=== PATIENT | female | born 1950 | race Caucasian/White ===

== ENCOUNTER → 2020-01-17 10:04 | Outpatient (BNVA) | payer BC, SELFPAY | PROVIDERS: Visit Provider Nurse Practitioner Gerontology | DX: E11.9 Type 2 diabetes mellitus without complications (principal); I10 Essential (primary) hypertension; E66.09 Other obesity due to excess calories; E03.9 Hypothyroidism, unspecified; Z87.891 Personal history of nicotine dependence; Z79.899 Other long term (current) drug therapy; Z68.39 Body mass index [BMI] 39.0-39.9, adult; Z90.721 Acquired absence of ovaries, unilateral ==

== ENCOUNTER 2020-04-14 10:17 | Outpatient (REF) | payer BC, SELFPAY ==
[2020-04-14 14:06] LABS: Estimated Average Glucose 146 mg/dL; Hemoglobin A1c % 6.7 %
[2020-04-14 14:15] LABS: Creatinine Urine 123.72 mg/dL
[2020-04-14 14:18] LABS: Alanine Aminotransferase 52 U/L (0-31); Alkaline Phosphatase 77 U/L (39-117); Anion Gap 14 (12-20); Aspartate Amino Transferase 43 U/L (5-31); Bilirubin Total 0.7 mg/dL (0.0-1.0); Blood Urea Nitrogen 12 mg/dL (9-16); Calcium 8.6 mg/dL (8.4-10.2); Carbon Dioxide 26 mmol/L (22-29); Chloride 106 mmol/L (96-108); Cholesterol 169 mg/dL; Estimated Glomerular Filt Rate > 60; Glucose Fasting 147 mg/dL (60-99); HDL Cholesterol 50 mg/dL; LDL Cholesterol Calculated 82 mg/dl; Potassium 4.7 mmol/l (3.3-5.1); Sodium 141 mmol/L (135-145); Total Protein 6.8 g/dL (6.5-8.0); Triglycerides 185 mg/dL
== END 2020-04-14 10:18 | disposition home or self-care (01) ==
LOC: HO.10HDL 10:17
PROVIDERS: Visit Provider Nurse Practitioner Gerontology
DX: E11.9 Type 2 diabetes mellitus without complications (principal)
CPT/HCPCS: 80053; 80061; 82043; 83036

== ENCOUNTER → 2020-04-21 09:10 | Outpatient (BNVA) | payer BC, SELFPAY | PROVIDERS: Visit Provider Nurse Practitioner Gerontology | DX: Z76.89 Persons encountering health services in other specified circumstances (principal) ==

== ENCOUNTER → 2020-06-18 09:05 | Outpatient (BNVA) | payer BC, SELFPAY | PROVIDERS: PCP Internal Medicine; Visit Provider Obstetrics & Gynecology ==

== ENCOUNTER 2020-08-04 07:50 | Outpatient (REF) | payer MEDICARE, BC, SELFPAY ==
[2020-08-04 11:41] LABS: Hematocrit 46.7 % (37-47); Hemoglobin 15.2 g/dl (12.0-16.0)
[2020-08-04 11:47] LABS: Estimated Average Glucose 137 mg/dL; Hemoglobin A1c % 6.4 %
[2020-08-04 12:01] LABS: Alanine Aminotransferase 58 U/L (0-31); Albumin Level 4.1 g/dL (3.5-5.0); Alkaline Phosphatase 78 U/L (39-117); Anion Gap 16 (12-20); Aspartate Amino Transferase 44 U/L (5-31); Bilirubin Total 0.8 mg/dL (0.0-1.0); Blood Urea Nitrogen 17 mg/dL (9-16); Calcium 9.1 mg/dL (8.4-10.2); Carbon Dioxide 22 mmol/L (22-29); Chloride 107 mmol/L (96-108); Cholesterol 155 mg/dL; Estimated Glomerular Filt Rate > 60; Glucose Fasting 169 mg/dL (60-99); HDL Cholesterol 47 mg/dL; LDL Cholesterol Calculated 79 mg/dl; Potassium 4.1 mmol/L (3.3-5.1); Sodium 141 mmol/L (135-145); Total Protein 6.9 g/dL (6.5-8.0); Triglycerides 145 mg/dL
[2020-08-04 12:07] LABS: Microalbum/Creatinine Ratio Ur 22.2 ug/mg cr
[2020-08-04 12:30] LABS: TSH reflex Free T4 2.66 uIU/mL (0.32-4.0)
== END 2020-08-04 07:51 | disposition home or self-care (01) ==
LOC: HO.HMGCLDS 07:50
PROVIDERS: PCP Internal Medicine; Visit Provider Internal Medicine
DX: E03.9 Hypothyroidism, unspecified (principal); L91.8 Other hypertrophic disorders of the skin; E66.01 Morbid (severe) obesity due to excess calories; E11.9 Type 2 diabetes mellitus without complications; E78.5 Hyperlipidemia, unspecified; I10 Essential (primary) hypertension; R79.89 Other specified abnormal findings of blood chemistry; Z76.89 Persons encountering health services in other specified circumstances
CPT/HCPCS: 36415; 80053; 80061; 82043; 83036; 84443; 85014; 85018

== ENCOUNTER → 2020-08-13 08:00 | Outpatient (BNVA) | payer MEDICARE, BC, SELFPAY | PROVIDERS: PCP Internal Medicine; Visit Provider Physician Assistant | DX: Z13.89 Encounter for screening for other disorder (principal) | CPT/HCPCS: Q3014 ==

== ENCOUNTER 2020-08-19 07:39 | Outpatient (REF) | payer MEDICARE, BC, SELFPAY ==
--- NOTE | ~2020-08-19 | MM_ITS ---
EXAMINATION: MM SCREENING DIGITAL BREAST TOMOSYNTHESIS, BILATERAL CLINICAL INFORMATION: Screening. Asymptomatic. The lifetime risk of breast cancer based on the Tyrer-Cuzick Model is 5%. COMPARISON: Mammography: 02/21/2018, 10/05/2012 TECHNIQUE: Digital breast tomosynthesis is performed in both the craniocaudal and mediolateral oblique views along with computer-aided detection (CAD). Synthesized 2D images are generated from the tomosynthesis. Additional left CC view is provided. FINDINGS: There are scattered areas of fibroglandular density (ACR BI-RADS breast composition Category b). Parenchymal pattern is similar to prior studies. There is no developing density or interval mass or architectural abnormality. There are scattered bilateral round, vascular, and some ductal secretory calcifications. The axilla and skin contours are unremarkable. No significant changes. MM/MM tomosynthesis screening BI IMPRESSION: No mammographic evidence of malignancy. ASSESSMENT: BI-RADS 2: Benign RECOMMENDATION: Routine annual mammography screening. This patient's information was entered into a reminder system with a target due date for their next mammogram.
--- NOTE | ~2020-08-19 | MM_ITS ---
EXAMINATION: BONE DENSITOMETRY CLINICAL INDICATION: Menopause. COMPARISON: None (current study represents initial baseline exam). TECHNIQUE: Using a [employer] DXA System (software version: 13.1) manufactured by [employer], dual-energy x-ray absorptiometry was performed of the lumbar spine and left hip. The images are of good technical quality. Summary results are attached. FINDINGS: AP SPINE L1-L4: BMD 1.251 g/cm2, Z-score 1.3, T-score 0.6, normal. LEFT FEMUR, NECK: BMD 0.857 g/cm2, Z-score -0.2, T-score -1.3, osteopenia. LEFT FEMUR, TOTAL: BMD 1.072 g/cm2, Z-score 1.3, T-score 0.5, normal. IDENTIFIED RISK FACTORS: Menopause. HISTORY OF FRACTURE: None listed. MEDICATIONS: None listed. MM/XR DEXA axial skeleton IMPRESSION: 1. DIAGNOSIS: Osteopenia based on the lowest T-score value of -1.3 in the femoral neck applying World Health Organization criteria. 2. 10-YEAR FRACTURE RISK PREDICTION, FRAX: Major osteoporotic fracture (clinical spine, forearm, hip or shoulder) 8.5%. Hip fracture 1.0%. 3. Treatment Recommendations: NOF guidelines recommend consideration for treatment in postmenopausal women and men age 50 and older presenting with the following: -A hip or vertebral (clinical or morphometric) fracture. -T-score less than or equal to -2.5 at the femoral neck or spine after appropriate evaluation to exclude secondary causes. -Low bone mass at the hip or spine and a 10-year fracture probability by FRAX of greater than or equal to 3% for hip fracture or greater than or equal to 20% for major osteoporotic fracture based on the [place] adapted WHO algorithm. 4. Other Recommendations: All treatment decisions require clinical judgment and consideration of individual patient factors, including patient preferences, comorbidities, previous drug use, risk factors not captured in the FRAX model (e.g. frailty, falls, vitamin D deficiency, increased bone turnover, interval significant decline in bone density) and possible under or overestimation of fracture risk by FRAX. Additional medical evaluation for secondary cause of low bone mineral density may be appropriate. FUTURE SCAN RECOMMENDATION: People with diagnosed cases of osteoporosis or at high risk for fracture should have regular bone mineral density tests. For patients eligible for Medicare, routine testing is allowed once every 2 years. The testing frequency can be increased to one year for patients who have rapidly progressing disease, those who are receiving or discontinuing medical therapy to restore bone mass, or have additional risk factors.
== END 2020-08-19 07:40 | disposition home or self-care (01) ==
LOC: HO.MAMMO 07:39
PROVIDERS: PCP Internal Medicine; Visit Provider Obstetrics & Gynecology
DX: Z13.820 Encounter for screening for osteoporosis (principal); Z12.31 Encounter for screening mammogram for malignant neoplasm of breast; M85.80 Other specified disorders of bone density and structure, unspecified site; Z78.0 Asymptomatic menopausal state
CPT/HCPCS: 77063; 77067; 77080

== ENCOUNTER → 2020-08-25 15:53 | Outpatient (BNVA) | payer MEDICARE, BC, SELFPAY | PROVIDERS: PCP Internal Medicine; Visit Provider Obstetrics & Gynecology | DX: Z13.89 Encounter for screening for other disorder (principal) | CPT/HCPCS: Q3014 ==

== ENCOUNTER 2020-09-04 08:27 | Outpatient (REF) | payer MEDICARE, BC, SELFPAY ==
--- NOTE | ~2020-09-04 | US_ITS ---
EXAMINATION: US COMPLETE ABDOMEN WITH LIVER ELASTOGRAPHY CLINICAL INFORMATION: Obesity COMPARISON: None. TECHNIQUE: Real-time imaging of the abdominal viscera. Noninvasive ultrasound liver fibrosis assessment is performed using [employer] point quantification shear wave elastography (pSWE) with a C5-2 MHz transducer. Multiple elastography samples are obtained. FINDINGS: PANCREAS: Normal. The visualized pancreatic head and body are normal in appearance. The remainder of the pancreas is obscured from visualization by the overlying bowel gas. ABDOMINAL AORTA: The proximal and middle aortic segments are normal in caliber. The distal abdominal aorta is not well visualized due to bowel gas INFERIOR VENA CAVA: Visualized portions are normal. LIVER: Liver echotexture is increased. The liver is upper normal in size. The liver is normal in contour. No focal lesion or intrahepatic biliary duct dilatation. The right lobe measures 17.4 cm in length. The left lobe measures 13 cm in length. Portal flow is normal. Hepatopedal. Shear wave liver elastography median stiffness is 1.6 m/s (reference: normal median stiffness is 1.3 m/s or less). IQR/median stiffness to assess sampling precision is 0.2 (reference: good quality data set is IQR/median stiffness of 0.15 or less). GALLBLADDER: Normal. The gallbladder is physiologically distended without evidence of stones, sludge, polyps, wall thickening or pericholecystic fluid. COMMON BILE DUCT: Normal in caliber measuring 0.3 cm in diameter. RIGHT KIDNEY: There is a 9 mm echogenic lesion in the midpole of the right kidney. This most likely represents an angiomyolipoma. There is a 3.8 x 3.9 x 4.3 cm cyst in the midpole. No hydronephrosis. No renal calculi. The kidney measures 10.6 cm in maximum dimension. LEFT KIDNEY: Normal. No hydronephrosis. No renal calculi or focal parenchymal lesions. The kidney measures 11.3 cm in maximum dimension. SPLEEN: Upper normal in size. in the spleen. The spleen measures 13.6 cm in maximum dimension. FREE FLUID: None. US/US abdomen comp w elastography IMPRESSION: 1. Impression: Echogenic liver probably representing fatty infiltration. 9 mm echogenic lesion in the right lobe of the liver. This probably represents a benign angiomyolipoma. Confirmation with comparison with old exams if available is recommended. Otherwise, confirmation with CT or MRI of the kidneys should be considered. 4 cm right renal cyst. 2. Liver elastography: Slightly limited due to sampling error. Liver stiffness rules out advanced chronic liver disease. REFERENCE: Society of Radiologists in Ultrasound Liver Stiffness Thresholds (2020): LIVER STIFFNESS THRESHOLDS: *Liver Stiffness equal or less than 1.3 m/s: High probability of being normal. *Liver Stiffness less than 1.7 m/s: In the absence of other known clinical signs, rules out compensated advanced chronic liver disease. *Liver Stiffness 1.7-2.1 m/s: Suggestive of compensated advanced chronic liver disease but need further test for confirmation. *Liver Stiffness over 2.1 m/s: Rules in compensated advanced chronic liver disease. *Liver Stiffness over 2.4 m/s: Suggestive of clinically significant portal hypertension. QUALITY OF DATA SET: *IQR/Median value equal or less than 0.15 implies a quality data set. *IQR/Median value over 0.15 implies a poor quality data set. SIGNIFICANT CHANGE FROM PRIOR EXAM: Significant change if liver stiffness measurement is 10% or greater from prior exam. OTHER CONSIDERATIONS: The stage of liver fibrosis may be overestimated in the setting of acute hepatitis, liver inflammation, elevated liver function tests, hepatic vascular congestion, obstructive cholestasis, non-fasting state, and infiltrative diseases such as amyloidosis and lymphoma. In some patients with NAFLD, the liver stiffness thresholds for compensated advanced chronic liver disease may be lower. In causes other than viral hepatitis and NAFLD, liver stiffness thresholds are not well established.
[2020-09-04 09:37] LABS: MANUAL DIFF FLAG NO
[2020-09-04 09:44] LABS: Basophils Percent Auto 0.5 % (0-2); Eosinophils Absolute Auto 0.2 X10*3/uL (0.0-0.4); Eosinophils Percent Auto 3.1 % (0-4); Hematocrit 43.9 % (37-47); Hemoglobin 14.7 g/dl (12.0-16.0); Imm Gran Abs Auto 0.03 X10*3/uL (0.00-0.03); Imm Gran Pct Auto 0.5 % (0.0-0.4); Lymphocytes Absolute Auto 1.2 X10*3/uL (1.2-4.9); Mean Corpuscular HGB Conc 33.5 g/dl (31.0-35.0); Mean Corpuscular Hemoglobin 31.5 pg (27.0-33.0); Mean Corpuscular Volume 94.2 fL (80-98); Mean Platelet Volume 9.6 fL (9.4-12.3); Monocytes Absolute Auto 0.4 X10*3/uL (0.1-1.2); Monocytes Percent Auto 6.9 % (2-11); Neutrophils Absolute Auto 3.7 X10*3/uL (2.0-8.3); Platelet Count 200 X10*3/uL (160-400); Red Blood Count 4.66 X10*6/uL (4.20-5.50); Red Cell Distribution Width 14.5 % (11.0-16.0); White Blood Count 5.5 X10*3/uL (4.8-10.8)
[2020-09-04 10:22] LABS: HBsAGNum1 0.21 S/CO (0.00-0.99); Hepatitis B Surface Antigen Negative (Negative)
[2020-09-04 10:26] LABS: HBS Num1 0.31 mIU/mL (0-7.99); HBc Num1 0.27 S/CO (0.00-0.79); Hepatitis B Core Antibody Nonreactive (Nonreactive); ~HepC Num1 0.08 S/CO (0.00-0.79); ~Hepatitis B Surface Antibody NONREACTIVE (Nonreactive); ~Hepatitis C Antibody Nonreactive (Nonreactive)
[2020-09-04 11:08] LABS: Estimated Average Glucose 137 mg/dL; Hemoglobin A1c % 6.4 %
[2020-09-05 04:21] LABS: Hepatitis A Antibody IgM 0.16 Index (0-0.79); ~Hepatitis A Antibody IgM Nonreactive (Nonreactive)
[2020-09-09 14:56] LABS: Mitochondrial Antibodies NEGATIVE (NEGATIVE)
[2020-09-09 23:46] LABS: Anti Nuclear Antibody Screen POSITIVE (NEGATIVE); Anti Nuclear Antibody Titer 1:40 titer
[2020-09-10 21:12] LABS: Smooth Muscle Antibody <20 U (<20)
== END 2020-09-04 08:28 | disposition home or self-care (01) ==
LOC: HO.US 08:27
PROVIDERS: PCP Internal Medicine; Visit Provider Physician Assistant
DX: E66.01 Morbid (severe) obesity due to excess calories (principal); Z68.39 Body mass index [BMI] 39.0-39.9, adult; R79.89 Other specified abnormal findings of blood chemistry; R74.01 Elevation of levels of liver transaminase levels; R74.8 Abnormal levels of other serum enzymes
CPT/HCPCS: 36415; 76705; 76981; 83036; 85025; 86038; 86039; 86255; 86256; 86704; 86706; 86709; 86803; 87340

== ENCOUNTER → 2020-10-16 12:42 | Outpatient (BNVA) | payer MEDICARE, BC, SELFPAY | PROVIDERS: PCP Internal Medicine; Visit Provider Physician Assistant | DX: R79.89 Other specified abnormal findings of blood chemistry (principal); K76.0 Fatty (change of) liver, not elsewhere classified; R76.8 Other specified abnormal immunological findings in serum | CPT/HCPCS: Q3014 ==

== ENCOUNTER → 2020-10-21 09:52 | Outpatient (BNVA) | payer MEDICARE, BC, SELFPAY | PROVIDERS: PCP Internal Medicine; Visit Provider Nurse Practitioner Gerontology | DX: E11.9 Type 2 diabetes mellitus without complications (principal); I10 Essential (primary) hypertension; E66.01 Morbid (severe) obesity due to excess calories; E78.5 Hyperlipidemia, unspecified; Z68.39 Body mass index [BMI] 39.0-39.9, adult | CPT/HCPCS: 82947; 99212 ==

== ENCOUNTER → 2020-11-05 09:34 | Outpatient (BNVA) | payer MEDICARE, BC, SELFPAY | PROVIDERS: PCP Internal Medicine; Visit Provider Physician Assistant | CPT/HCPCS: Q3014 ==

== ENCOUNTER 2020-11-14 11:32 | Outpatient (REF) | payer MEDICARE, BC, SELFPAY ==
--- NOTE | ~2020-11-14 | MR_ITS ---
EXAMINATION: MR ABDOMEN WITHOUT AND WITH CONTRAST CLINICAL INFORMATION: Follow up renal lesion seen on ultrasound. COMPARISON: Previous abdominal ultrasound August 2020. TECHNIQUE: MR abdomen was performed without and with use of 10 mL intravenous Gadavist gadolinium contrast. Postcontrast images are performed in multiphase dynamic sequences. Imaging was performed in 3 planes. FINDINGS: LUNG BASES: The visualized lung bases are unremarkable. LIVER, GALLBLADDER, AND BILIARY TREE: The liver is normal in size and shape. There is mild fatty infiltration of the liver. No focal liver lesion is seen. The gallbladder is normal. There is no intra or extrahepatic biliary duct dilatation. PANCREAS: Unremarkable. SPLEEN: Normal. ADRENAL GLANDS: Normal. KIDNEYS AND URETERS: The kidneys are normal in size and shape. There is a 5 mm lesion in the posterior lateral right kidney. This is slightly low signal on T1-weighted sequences, not clearly appreciated on T2-weighted sequences and loses signal on out of phase sequences suggestive of a fatty lesion. This does not demonstrate appreciable enhancement. This likely corresponds to the echogenic lesion seen on ultrasound and represents a small benign angiomyolipoma. There is a 4 mm cyst in the anterior mid right kidney. There is a 4 cm cyst in the lateral mid left kidney. GASTROINTESTINAL TRACT: There is diverticulosis of the colon. No ascites or fluid collection. ABDOMINAL WALL: No significant hernia is appreciated. LYMPH NODES: No lymphadenopathy. VASCULAR: Unremarkable. OSSEOUS STRUCTURES: Marrow signal normal. There are degenerative changes of the spine. MR/MR abdomen wo/w con IMPRESSION: 5 mm lesion in the right kidney that loses signal on out of phase sequences probably representing a benign angiomyolipoma. Small 4 mm right renal cyst and 4 cm left renal cyst. Mild fatty infiltration of the liver. Diverticulosis of the colon.
[2020-11-14 12:18] LABS: Blood Urea Nitrogen 12 mg/dL (9-16); Estimated Glomerular Filt Rate > 60
== END 2020-11-14 11:33 | disposition home or self-care (01) ==
LOC: HO.MRI 11:32
PROVIDERS: PCP Internal Medicine; Visit Provider Physician Assistant
DX: R93.5 Abnormal findings on diagnostic imaging of other abdominal regions, including retroperitoneum (principal); R79.89 Other specified abnormal findings of blood chemistry; K76.0 Fatty (change of) liver, not elsewhere classified; E11.9 Type 2 diabetes mellitus without complications
CPT/HCPCS: 36415; 74183; 82565; 84520; A9585

== ENCOUNTER → 2020-11-25 15:30 | Outpatient (BNVA) | payer MEDICARE, BC, SELFPAY | PROVIDERS: PCP Internal Medicine; Visit Provider Physician Assistant | DX: K76.0 Fatty (change of) liver, not elsewhere classified (principal); D17.71 Benign lipomatous neoplasm of kidney | CPT/HCPCS: Q3014 ==

== ENCOUNTER 2021-01-12 10:02 | Outpatient (REF) | payer MEDICARE, BC, SELFPAY ==
[2021-01-12 12:12] LABS: MANUAL DIFF FLAG NO
[2021-01-12 12:24] LABS: Basophils Absolute Auto 0.1 X10*3/uL (0.0-0.2); Basophils Percent Auto 0.8 % (0-2); Eosinophils Absolute Auto 0.2 X10*3/uL (0.0-0.4); Eosinophils Percent Auto 2.9 % (0-4); Hematocrit 46.2 % (37-47); Hemoglobin 15.3 g/dl (12.0-16.0); Imm Gran Abs Auto 0.03 X10*3/uL (0.00-0.03); Imm Gran Pct Auto 0.4 % (0.0-0.4); Lymphocytes Absolute Auto 1.5 X10*3/uL (1.2-4.9); Lymphocytes Percent Auto 20.7 % (20-40); Mean Corpuscular HGB Conc 33.1 g/dl (31.0-35.0); Mean Corpuscular Volume 93.7 fL (80-98); Mean Platelet Volume 9.6 fL (9.4-12.3); Monocytes Absolute Auto 0.4 X10*3/uL (0.1-1.2); Monocytes Percent Auto 5.7 % (2-11); Neutrophils Absolute Auto 5.1 X10*3/uL (2.0-8.3); Neutrophils Percent Auto 69.5 % (45-73); Platelet Count 189 X10*3/uL (160-400); Red Blood Count 4.93 X10*6/uL (4.20-5.50); Red Cell Distribution Width 14.4 % (11.0-16.0); White Blood Count 7.3 X10*3/uL (4.8-10.8)
[2021-01-12 12:30] LABS: Estimated Average Glucose 140 mg/dL; Hemoglobin A1c % 6.5 %
[2021-01-12 12:38] LABS: Alanine Aminotransferase 45 U/L (0-31); Alkaline Phosphatase 81 U/L (39-117); Aspartate Amino Transferase 41 U/L (5-31); Bilirubin Direct 0.4 mg/dL (0.0-0.5); Bilirubin Total 1.1 mg/dL (0.0-1.0); Cholesterol 190 mg/dL; HDL Cholesterol 55 mg/dL; LDL Cholesterol Calculated 102 mg/dl; Total Protein 6.9 g/dL (6.5-8.0); Triglycerides 166 mg/dL
== END 2021-01-12 10:03 | disposition home or self-care (01) ==
LOC: HO.LAB 10:02
PROVIDERS: Nurse Practitioner Gerontology; Visit Provider Physician Assistant
DX: R10.11 Right upper quadrant pain (principal); K76.0 Fatty (change of) liver, not elsewhere classified; K62.5 Hemorrhage of anus and rectum; E11.9 Type 2 diabetes mellitus without complications
CPT/HCPCS: 36415; 80061; 80076; 83036; 85025

== ENCOUNTER → 2021-04-27 08:37 | Outpatient (BNVA) | payer MEDICARE, BC, SELFPAY | PROVIDERS: Visit Provider Nurse Practitioner Gerontology | DX: E11.9 Type 2 diabetes mellitus without complications (principal); I10 Essential (primary) hypertension; E66.01 Morbid (severe) obesity due to excess calories; E78.5 Hyperlipidemia, unspecified; E03.9 Hypothyroidism, unspecified; Z68.39 Body mass index [BMI] 39.0-39.9, adult | CPT/HCPCS: 36415; 82043; 82947; 83036; 84439; 84443; 99212 ==

== ENCOUNTER 2021-04-27 09:53 | Outpatient (REF) | payer MEDICARE, BC, SELFPAY ==
[2021-04-27 10:52] LABS: Creatinine Urine 223.79 mg/dL; Microalbum/Creatinine Ratio Ur 10.2 ug/mg cr
[2021-04-27 11:17] LABS: Thyroid Stimulating Hormone 18.23 uIU/mL (0.32-4.0)
== END 2021-04-27 09:54 | disposition home or self-care (01) ==
LOC: HO.10HDL 09:53
PROVIDERS: Visit Provider Nurse Practitioner Gerontology
DX: Z13.89 Encounter for screening for other disorder (principal)
CPT/HCPCS: 36415; 82043; 84439; 84443

== ENCOUNTER → 2021-05-14 09:35 | Outpatient (BNVA) | payer MEDICARE, BC, SELFPAY | PROVIDERS: PCP Internal Medicine; Referring Provider Internal Medicine; Visit Provider Physician Assistant | DX: K76.0 Fatty (change of) liver, not elsewhere classified (principal); R79.89 Other specified abnormal findings of blood chemistry | CPT/HCPCS: 99212 ==

== ENCOUNTER → 2021-06-22 09:56 | Outpatient (BNVA) | payer MEDICARE, BC, SELFPAY | PROVIDERS: PCP Internal Medicine; Visit Provider Obstetrics & Gynecology | DX: Z13.89 Encounter for screening for other disorder (principal) ==

== ENCOUNTER 2021-06-29 08:09 | Outpatient (REF) | payer MEDICARE, BC, SELFPAY ==
[2021-06-29 11:06] LABS: Alanine Aminotransferase 57 U/L (0-31); Alkaline Phosphatase 72 U/L (39-117); Aspartate Amino Transferase 44 U/L (5-31); Bilirubin Direct 0.4 mg/dL (0.0-0.5); Bilirubin Total 0.9 mg/dL (0.0-1.0); Cholesterol 134 mg/dL; HDL Cholesterol 46 mg/dL; LDL Cholesterol Calculated 60 mg/dl; Triglycerides 141 mg/dL
[2021-06-29 11:23] LABS: Thyroid Stimulating Hormone 5.56 uIU/mL (0.32-4.0)
[2021-06-29 11:27] LABS: Free T4 (Free Thyroxine) 1.24 ng/dL (0.71-1.85); Thyroid Stimulating Hormone 5.45 uIU/mL (0.32-4.0)
== END 2021-06-29 08:10 | disposition home or self-care (01) ==
LOC: HO.10HDL 08:09
PROVIDERS: Physician Assistant; PCP Nurse Practitioner Gerontology; Visit Provider Nurse Practitioner Gerontology
DX: K59.09 Other constipation (principal); R10.11 Right upper quadrant pain; K76.0 Fatty (change of) liver, not elsewhere classified; E03.9 Hypothyroidism, unspecified
CPT/HCPCS: 36415; 80061; 80076; 84439; 84443

== ENCOUNTER → 2021-07-27 08:40 | Outpatient (BNVA) | payer MEDICARE, BC, SELFPAY | PROVIDERS: Visit Provider Nurse Practitioner Gerontology | DX: E11.9 Type 2 diabetes mellitus without complications (principal); E78.5 Hyperlipidemia, unspecified; E03.9 Hypothyroidism, unspecified; E66.01 Morbid (severe) obesity due to excess calories; I10 Essential (primary) hypertension; Z68.38 Body mass index [BMI] 38.0-38.9, adult | CPT/HCPCS: 82947; 83036; Q3014 ==

== ENCOUNTER 2021-08-10 10:52 | Outpatient (REF) | payer MEDICARE, BC, SELFPAY ==
[2021-08-10 12:52] LABS: Free T4 (Free Thyroxine) 1.18 ng/dL (0.71-1.85); Thyroid Stimulating Hormone 1.61 uIU/mL (0.32-4.0)
[2021-08-12 11:06] LABS: Thyroglobulin Antibodies 1 IU/mL (< or = 1); Thyroid Peroxidase Antibodies 1 IU/mL (<9)
== END 2021-08-10 10:53 | disposition home or self-care (01) ==
LOC: HO.10HDL 10:52
PROVIDERS: Visit Provider Nurse Practitioner Gerontology
DX: E03.9 Hypothyroidism, unspecified (principal)
CPT/HCPCS: 36415; 84439; 84443; 86376; 86800

== ENCOUNTER 2021-12-18 07:37 | Outpatient (REF) | payer MEDICARE, BC, SELFPAY ==
--- NOTE | ~2021-12-18 | MM_ITS ---
EXAMINATION: MM SCREENING DIGITAL BREAST TOMOSYNTHESIS, BILATERAL CLINICAL INFORMATION: Screening. Asymptomatic. The lifetime risk of breast cancer based on the Tyrer-Cuzick Model is 5%. COMPARISON: Mammography: 08/19/2020, 02/21/2018, 10/05/2012 TECHNIQUE: Digital breast tomosynthesis is performed in both the craniocaudal and mediolateral oblique views along with computer-aided detection (CAD). Synthesized 2D images are generated from the tomosynthesis. FINDINGS: There are scattered areas of fibroglandular density (ACR BI-RADS breast composition Category b). There are no significant masses, abnormal calcifications, or other abnormalities. Parenchymal pattern is similar to prior studies. No developing density. Again, there are scattered bilateral vascular, coarse, ductal secretory, and punctate round calcifications. The axilla and skin contours are unremarkable. MM/MM tomosynthesis screening BI IMPRESSION: No mammographic evidence of malignancy. ASSESSMENT: BI-RADS 2: Benign RECOMMENDATION: Routine annual mammography screening. This patient's information was entered into a reminder system with a target due date for their next mammogram.
== END 2021-12-18 07:38 | disposition home or self-care (01) ==
LOC: HO.MAMMO 07:37
PROVIDERS: Visit Provider Obstetrics & Gynecology
DX: Z12.31 Encounter for screening mammogram for malignant neoplasm of breast (principal)
CPT/HCPCS: 77063; 77067

== ENCOUNTER 2022-01-18 09:39 | Outpatient (REF) | payer MEDICARE, BC, SELFPAY ==
[2022-01-18 11:16] LABS: MANUAL DIFF FLAG NO
[2022-01-18 11:30] LABS: Basophils Percent Auto 0.7 % (0-2); Eosinophils Absolute Auto 0.2 X10*3/uL (0.0-0.4); Eosinophils Percent Auto 4.1 % (0-4); Hematocrit 44.5 % (37.0-47.0); Hemoglobin 14.2 g/dl (12.0-16.0); Imm Gran Abs Auto 0.02 X10*3/uL (0.00-0.03); Imm Gran Pct Auto 0.4 % (0.0-0.4); Lymphocytes Absolute Auto 1.4 X10*3/uL (1.2-4.9); Lymphocytes Percent Auto 24.7 % (20-40); Mean Corpuscular HGB Conc 31.9 g/dl (31.0-35.0); Mean Corpuscular Hemoglobin 30.3 pg (27.0-33.0); Mean Corpuscular Volume 95.1 fL (80.0-98.0); Mean Platelet Volume 9.5 fL (9.4-12.3); Monocytes Absolute Auto 0.4 X10*3/uL (0.1-1.2); Monocytes Percent Auto 7.1 % (2-11); Neutrophils Absolute Auto 3.6 x10*3/uL (2.0-8.3); Platelet Count 175 X10*3/uL (160-400); Red Blood Count 4.68 X10*6/uL (4.20-5.50); Red Cell Distribution Width 14.7 % (11.0-16.0); White Blood Count 5.7 X10*3/uL (4.8-10.8)
[2022-01-18 12:02] LABS: Alanine Aminotransferase 27 U/L (0-31); Alkaline Phosphatase 76 U/L (39-117); Anion Gap 16 (12-20); Aspartate Amino Transferase 25 U/L (5-31); Bilirubin Total 1.1 mg/dL (0.0-1.0); Blood Urea Nitrogen 14 mg/dL (9-16); Calcium 9.2 mg/dL (8.4-10.2); Carbon Dioxide 24 mmol/L (22-29); Chloride 106 mmol/L (96-108); Cholesterol 156 mg/dL; Estimated Glomerular Filt Rate > 60; Glucose Fasting 121 mg/dL (60-99); HDL Cholesterol 47 mg/dL; LDL Cholesterol Calculated 78 mg/dl; Sodium 142 mmol/L (135-145); Total Protein 6.7 g/dL (6.5-8.0); Triglycerides 155 mg/dL
[2022-01-18 12:07] LABS: TSH reflex Free T4 0.75 uIU/mL (0.32-4.0)
[2022-01-18 12:10] LABS: Estimated Average Glucose 123 mg/dL; Hemoglobin A1c % 5.9 %
== END 2022-01-18 09:40 | disposition home or self-care (01) ==
LOC: HO.HMGCLDS 09:39
PROVIDERS: PCP Internal Medicine; Visit Provider Internal Medicine
DX: I10 Essential (primary) hypertension (principal); E03.8 Other specified hypothyroidism; E78.9 Disorder of lipoprotein metabolism, unspecified; R79.89 Other specified abnormal findings of blood chemistry
CPT/HCPCS: 36415; 80053; 80061; 83036; 84443; 85025

== ENCOUNTER 2022-04-28 07:34 | Outpatient (REF) | payer MEDICARE, BC, SELFPAY ==
[2022-04-28 12:29] LABS: Alanine Aminotransferase 28 U/L (0-31); Alkaline Phosphatase 81 U/L (39-117); Anion Gap 15 (12-20); Aspartate Amino Transferase 26 U/L (5-31); Bilirubin Total 1.2 mg/dL (0.0-1.0); Blood Urea Nitrogen 17 mg/dL (9-16); Calcium 9.8 mg/dL (8.4-10.2); Carbon Dioxide 22 mmol/L (22-29); Chloride 107 mmol/L (96-108); Estimated Glomerular Filt Rate 56; Glucose Random 165 mg/dL (60-115); Sodium 140 mmol/L (135-145)
[2022-04-28 12:33] LABS: Estimated Average Glucose 123 mg/dL; Hemoglobin A1c % 5.9 %
[2022-04-28 12:34] LABS: TSH reflex Free T4 1.33 uIU/mL (0.32-4.0)
[2022-04-30 01:22] LABS: LDL Cholesterol Direct 83 mg/dL (<100)
== END 2022-04-28 07:35 | disposition home or self-care (01) ==
LOC: HO.HMGCLDS 07:34
PROVIDERS: PCP Internal Medicine; Visit Provider Internal Medicine
DX: E11.9 Type 2 diabetes mellitus without complications (principal); E66.09 Other obesity due to excess calories; E78.9 Disorder of lipoprotein metabolism, unspecified; I10 Essential (primary) hypertension; E03.8 Other specified hypothyroidism
CPT/HCPCS: 36415; 80053; 83036; 83721; 84443

== ENCOUNTER → 2022-05-20 07:39 | Outpatient (BNVA) | payer MEDICARE, BC, SELFPAY | PROVIDERS: PCP Internal Medicine; Referring Provider Internal Medicine; Visit Provider Physician Assistant | DX: K76.0 Fatty (change of) liver, not elsewhere classified (principal) | CPT/HCPCS: 99212 ==

== ENCOUNTER 2022-12-28 07:18 | Outpatient (REF) | payer MEDICARE, BC, SELFPAY ==
--- NOTE | ~2022-12-28 | MM_ITS ---
EXAMINATION: MM SCREENING DIGITAL BREAST TOMOSYNTHESIS, BILATERAL CLINICAL INFORMATION: Screening. Asymptomatic. COMPARISON: Mammography: This study is compared with prior exams dating back to 2018. TECHNIQUE: Digital breast tomosynthesis is performed in both the craniocaudal and mediolateral oblique views along with computer-aided detection (CAD). Synthesized 2D images are generated from the tomosynthesis. FINDINGS: The breasts are heterogeneously dense, which may obscure small masses (ACR BI-RADS breast composition Category c). There are no significant masses, abnormal calcifications, or other abnormalities. There are scattered, benign calcifications in each breast. MM/MM tomosynthesis screening BI IMPRESSION: No mammographic evidence of malignancy. ASSESSMENT: BI-RADS BI-RADS 2 - Benign Findings RECOMMENDATION: Routine annual mammography screening. 1 year F/U This examination should not preclude the clinical evaluation of a suspicious palpable abnormality. This patient's information was entered into a reminder system with a target due date for their next mammogram.
== END 2022-12-28 07:19 | disposition home or self-care (01) ==
LOC: HO.MAMMO 07:18
PROVIDERS: PCP Internal Medicine; Visit Provider Internal Medicine
DX: Z12.31 Encounter for screening mammogram for malignant neoplasm of breast (principal)
CPT/HCPCS: 77063; 77067

== ENCOUNTER → 2022-12-28 07:30 | Outpatient (BNV) | payer MEDICARE, BC, SELFPAY | PROVIDERS: PCP Internal Medicine; Visit Provider Radiology Diagnostic Radiology | DX: Z12.31 Encounter for screening mammogram for malignant neoplasm of breast (principal) | CPT/HCPCS: 77063; 77067 ==

== ENCOUNTER 2023-01-14 07:13 | Outpatient (REF) | payer MEDICARE, BC, SELFPAY ==
[2023-01-14 11:14] LABS: MANUAL DIFF FLAG NO
[2023-01-14 11:27] LABS: Estimated Average Glucose 120 mg/dL; Hemoglobin A1c % 5.8 % (<6.0)
[2023-01-14 11:32] LABS: Basophils Percent Auto 0.7 % (0-2); Eosinophils Absolute Auto 0.2 X10*3/uL (0.0-0.4); Eosinophils Percent Auto 3.5 % (0-4); Hematocrit 44.9 % (37.0-47.0); Hemoglobin 14.5 g/dl (12.0-16.0); Imm Gran Abs Auto 0.03 X10*3/uL (0.00-0.03); Imm Gran Pct Auto 0.5 % (0.0-0.4); Lymphocytes Absolute Auto 1.6 X10*3/uL (1.2-4.9); Lymphocytes Percent Auto 26.4 % (20-40); Mean Corpuscular HGB Conc 32.3 g/dl (31.0-35.0); Mean Corpuscular Hemoglobin 30.8 pg (27.0-33.0); Mean Corpuscular Volume 95.3 fL (80.0-98.0); Mean Platelet Volume 9.9 fL (9.4-12.3); Monocytes Absolute Auto 0.4 X10*3/uL (0.1-1.2); Monocytes Percent Auto 6.6 % (2-11); Neutrophils Absolute Auto 3.8 x10*3/uL (2.0-8.3); Neutrophils Percent Auto 62.3 % (45-73); Platelet Count 190 X10*3/uL (160-400); Red Blood Count 4.71 X10*6/uL (4.20-5.50); Red Cell Distribution Width 14.4 % (11.0-16.0); White Blood Count 6.1 X10*3/uL (4.8-10.8)
[2023-01-14 11:49] LABS: Alanine Aminotransferase 24 U/L (0-31); Albumin Level 3.8 g/dL (3.5-5.0); Alkaline Phosphatase 67 U/L (39-117); Anion Gap 15 (12-20); Aspartate Amino Transferase 24 U/L (5-31); Bilirubin Total 0.7 mg/dL (0.0-1.0); Blood Urea Nitrogen 13 mg/dL (9-16); Calcium 9.7 mg/dL (8.4-10.2); Carbon Dioxide 22 mmol/L (22-29); Chloride 109 mmol/L (96-108); Estimated Glomerular Filt Rate > 60; Glucose Random 135 mg/dL (60-115); Potassium 4.2 mmol/L (3.3-5.1); Sodium 142 mmol/L (135-145)
[2023-01-16 08:09] LABS: LDL Cholesterol Direct 74 mg/dL (<100)
== END 2023-01-14 07:14 | disposition home or self-care (01) ==
LOC: HO.HMGCLDS 07:13
PROVIDERS: PCP Internal Medicine; Visit Provider Internal Medicine
DX: E11.9 Type 2 diabetes mellitus without complications (principal); I10 Essential (primary) hypertension; E66.9 Obesity, unspecified; E03.8 Other specified hypothyroidism; E78.9 Disorder of lipoprotein metabolism, unspecified; R79.89 Other specified abnormal findings of blood chemistry
CPT/HCPCS: 36415; 80053; 83036; 83721; 84439; 84443; 85025

== ENCOUNTER 2023-01-21 08:35 | Outpatient (AMB) | payer MEDICARE, BC, SELFPAY ==
[2023-01-21 08:39] VITALS: BP 148/60; PULSE 74; O2SAT 94; BMI 40.8
--- NOTE | 2023-01-21 08:39 | MHC.PC.OV ---
Vital Signs 01/21/23 08:39 Height 5 ft 1 in Weight 216 lb BMI 40.8 BP 148/60 H Blood Pressure Location Lt brachial Position Sitting Pulse 74 Pulse Source Pulse Oximeter Pulse Oximetry (%) 94 Oxygen Delivery Method Room Air Intake Visit Reasons: 3 Month follow up Allergies amoxicillin [AMOXICILLIN] Allergy (Intermediate, Verified 01/21/23 08:41) RASH Penicillins [PENICILLINS] Allergy (Intermediate, Verified 01/21/23 08:41) RASH cephaloglycin [CEPHALOGLYCIN] Allergy (Mild, Verified 01/21/23 08:41) RASH ciprofloxacin [From CIPRO] Allergy (Mild, Verified 01/21/23 08:41) RASH penicillin V Allergy (Unknown, Verified 01/21/23 08:41) Unknown Amoxicillin Allergy (Unknown, Uncoded 05/20/22 08:09) Rash Cephadyn Allergy (Unknown, Uncoded 05/20/22 08:09) rash Cipro Allergy (Unknown, Uncoded 08/24/22 09:38) Rash penicillin Allergy (Unknown, Uncoded 08/24/22 09:38) Rash Medication List - Last Reconciled 01/21/23 by Brianna Gloria MD atorvastatin 40 mg PO DAILY blood sugar diagnostic (OneTouch Ultra Test strips) As directed 3x/day levothyroxine 88 mcg PO DAILY 90 days olmesartan 5 mg PO DAILY pen needle, diabetic As directed pioglitazone 30 mg PO DAILY semaglutide 1 mg (0.75 mL) subcut QWEEK 90 days Tobacco use date assessed: 01/21/23 Fall risk assessment: No Falls in past year Last assessed Fall Risk: 01/21/23 Dental Screening Dental Screen Date: 01/21/23 Did you have a dental visit in the last 12 months?: No Did you have a dental problem in the last 6 months where you did not have access to dental care?: No Was dental information given to patient?: Patient has dentist HPI 3 Month follow up HPI Details Patient is a 72-year-old female came in today for regular follow-up appointment Labs done 01/08/2023 showed TSH level of 0.10 Be adjusted her levothyroxine to 88 mcg patient was on 100 mcg She will repeat labs again in 6 weeks Diabetes mellitus : patient is on Actos 30 mg and Trulicity her hemoglobin A1c came back at 5.8 I am reducing the dose of Actos to 15 mg, patient is monitoring her blood sugar at home mostly in the morning and it runs around 125 Blood pressure is elevated patient is on olmesartan 5 mg, she forgot to bring her blood pressure monitor I am increasing the dose of olmesartan to 10 mg She will bring the blood pressure monitor and blood pressure log next visit. Lipid disorder: Continue atorvastatin 40 mg patient is tolerating medication BMI is 40.8 patient is morbidly obese and need to lose weight. Follow-up 3 months [facility] Medical History Positive HOLLY (antinuclear antibody) Hypothyroidism Hyperlipidemia LDL goal <100 Elevated LFTs Obesity due to excess calories Hypertension Controlled type 2 diabetes mellitus without complication Surgical History H/O colonoscopy Hx of dilation and curettage History of right oophorectomy Family History Sister Diabetes type 2, controlled Brother Diabetes, type I Social History Household Members: None Housing: House Alcohol intake: current Alcohol intake frequency: holidays/special occasions only Patient Tobacco Use Status: Former Tobacco user Years Smoked: 20 years e-Cigarette/Vaping Use: Never Used Second Hand Smoke Exposure: No service: No Current occupational status: retired Cognitive needs: No Hearing needs: No Vision needs: Yes Questionnaire PHQ-9 Over the last 2 weeks, how often have you been bothered by any of the following problems? 1. Little interest or pleasure in doing things: not at all 2. Feeling down, depressed, or hopeless: not at all 3. Trouble falling or staying asleep, or sleeping too much: not at all 4. Feeling tired or having little energy: not at all 5. Poor appetite or overeating: not at all 6. Feeling bad about yourself - or that you are a failure or have let yourself or your family down: not at all 7. Trouble concentrating on things, such as reading the newspaper or watching television: not at all 8. Moving or speaking so slowly that other people could have noticed. Or the opposite - being so fidgety or restless that you have been moving around a lot more than usual: not at all 9. Thoughts that you would be better off or of hurting yourself in some way: not at all Total score: 0 Depression Screening Interpretation: Negative Depression Screening Done: Yes [id number] - PHQ-9 Billing: Yes Source: Developed by Drs. Roberto Carlos Hinkle, Sydney Cabezas, Elijah Nielsen and colleagues, with an educational sylvia from [employer]. Thrive Questionnaire Date Thrive assessed: 04/30/22 AUDIT C Alcohol Use Questionnaire (AUDIT-C) 1. How often do you have a drink containing alcohol?: Never 3. How often do you have six or more drinks on one occasion?: Never Total Score: 0 Score Reviewed/Action Taken: Yes Review of Systems Const Denies chills and Denies fever(s) Eyes Denies blurry vision and Denies eye pain ENT Denies epistaxis, Denies nasal discharge, Denies throat swelling and Denies tongue swelling Card Denies chest pain Resp Denies chest congestion, Denies cough and Denies hemoptysis GI Denies diarrhea and Denies nausea Musc Reports as per HPI Skin/Breast Denies rash Neuro Reports no additional complaints Psych Reports no additional complaints Endo Reports no additional complaints Aller/Immun Denies throat swelling and Denies tongue swelling Physical exam (Primary Care) Vital Signs: Last Vital Signs Pulse 74 01/21/23 08:39 BP 148/60 H 01/21/23 08:39 Pulse Ox 94 01/21/23 08:39 Oxygen Delivery Method Room Air 01/21/23 08:39 BMI result Body Mass Index 40.8 Tobacco/Smoking Status: Tobacco use Status Tobacco use date assessed 01/21/23 01/21/23 08:43 Patient Tobacco Use Status Former Tobacco user 01/21/23 08:43 e-Cigarette/Vaping Use Never Used 01/21/23 08:43 PHQ-9: PHQ-9 Score PHQ-9: Total score 0 01/21/23 09:11 Depression Screening Interpretation: Negative Thrive Assessment: Date of Thrive Assessment Date Thrive assessed 04/30/22 01/21/23 08:43 Const General: cooperative, comfortable and no acute distress Orientation/consciousness: patient oriented x3 HENMT Head: Yes normocephalic Ears: hearing grossly normal bilaterally Eyes General: appearance normal, both eyes and all related structures Neck Neck: Yes supple Resp Effort & Inspection: normal respiratory effort, no cough and no stridor Cardio Rhythm: regular rhythm Heart sounds: S1 normal heart sound present and S2 normal heart sound present GI Palpation (GI): Soft to palpation and nontender Auscultation: normal bowel sounds Skin General skin exam: turgor normal Neuro General: patient oriented x3, tone normal and moves all extremities Gait exam (Neuro): Normal gait present Extrem Right lower extremity: no edema Left lower extremity: no edema Psych Affect: normal affect Attitude: cooperative Assessment and Plan Assessment & Plan (1) Controlled type 2 diabetes mellitus without complication: Code(s): E11.9 - Type 2 diabetes mellitus without complications Qualifiers: Diabetes mellitus terminal superintendent insulin use: without terminal superintendent use Qualified Code(s): E11.9 - Type 2 diabetes mellitus without complications (2) Other specified hypothyroidism: Code(s): E03.8 - Other specified hypothyroidism (3) Lipid disorder: Code(s): E78.9 - Disorder of lipoprotein metabolism, unspecified (4) Hypertension, essential: Code(s): I10 - Essential (primary) hypertension (5) Morbid obesity: Comment: If your BMI is between 25 and 29.9, you are overweight. If your BMI is 30 or greater, you are obese. ___ Being obese is a problem, because it increases the risks of many different health problems. It can also make it hard for you to move, breathe, and do other things that people who are at a healthy weight can do easily. Plus, being obese can be hard emotionally. ___ What are the health risks of being obese? Being obese increases a persons risk of developing many health problems. Here are just a few examples: __ Diabetes High blood pressure, High cholesterol, Heart disease (including heart attacks) Stroke, Sleep apnea (a disorder in which you stop breathing for short periods while asleep) Asthma, Cancer __ Does being obese shorten a persons life? Yes. Studies show that people who are obese younger than people who are a healthy weight. They also show that the risk of goes up the heavier a person is. The degree of increased risk depends on how long the person has been obese, and on what other medical problems he or she has. , Reduce your carbohydrate intake and choose carbs that are complex. Remember as a general rule of thumb, avoid highly processed foods. If it's white and soft, it's probably been stripped of its nutritional value. Change white bread to whole wheat bread, white rice to brown rice, white potatoes to sweet potatoes, white pasta to whole wheat pasta. Monitor portion sizes too: protein should be no bigger than your fist. Limit your red meat intake to only once or twice a wk. Eat more white meat but make sure to avoid creamy sauces etc. Broiling, baking or grilling is best. Increase dark, green leafy vegetables and fruits. Code(s): E66.01 - Morbid (severe) obesity due to excess calories Plan Patient is a 72-year-old female came in today for regular follow-up appointment Labs done 01/08/2023 showed TSH level of 0.10 Be adjusted her levothyroxine to 88 mcg patient was on 100 mcg She will repeat labs again in 6 weeks Diabetes mellitus : patient is on Actos 30 mg and Trulicity her hemoglobin A1c came back at 5.8 I am reducing the dose of Actos to 15 mg, patient is monitoring her blood sugar at home mostly in the morning and it runs around 125 Blood pressure is elevated patient is on olmesartan 5 mg, she forgot to bring her blood pressure monitor I am increasing the dose of olmesartan to 10 mg She will bring the blood pressure monitor and blood pressure log next visit. Lipid disorder: Continue atorvastatin 40 mg patient is tolerating medication BMI is 40.8 patient is morbidly obese and need to lose weight. Follow-up 3 months Medications: Changed From olmesartan 5 mg PO DAILY 30 tabs 6RF To olmesartan 10 mg (2 x 5 mg) PO DAILY 180 tabs 6RF 90 days Coding Level of Care Code Est Pt Level 4 (55025) Diagnoses Controlled type 2 diabetes mellitus without complication, without long-term current use of insulin E11.9 Diabetes mellitus mcc insulin use: without mcc use Other specified hypothyroidism E03.8 Lipid disorder E78.9 Hypertension, essential I10 Morbid obesity E66.01
== END 2023-01-21 09:10 | disposition home or self-care (01) ==
PROVIDERS: PCP Internal Medicine; Visit Provider Internal Medicine
DX: E11.9 Type 2 diabetes mellitus without complications (principal); E66.01 Morbid (severe) obesity due to excess calories; Z68.41 Body mass index [BMI] 40.0-44.9, adult; E03.8 Other specified hypothyroidism; E78.9 Disorder of lipoprotein metabolism, unspecified; I10 Essential (primary) hypertension
CPT/HCPCS: 99214

== ENCOUNTER 2023-03-01 09:34 | Outpatient (REF) | payer MEDICARE, BC, SELFPAY ==
[2023-03-01 12:25] LABS: TSH reflex Free T4 2.55 uIU/mL (0.32-4.0)
== END 2023-03-01 09:35 | disposition home or self-care (01) ==
LOC: HO.HMGCLDS 09:34
PROVIDERS: PCP Internal Medicine; Visit Provider Internal Medicine
DX: E03.8 Other specified hypothyroidism (principal)
CPT/HCPCS: 36415; 84443

== ENCOUNTER 2023-04-27 08:52 | Outpatient (AMB) | payer MEDICARE, BC, SELFPAY ==
--- NOTE | 2023-04-27 08:59 | MHC.PC.OV ---
Vital Signs 04/27/23 09:00 Height 5 ft 1 in Weight 218 lb 9 oz BMI 41.3 BP 174/98 H Blood Pressure Location Lt brachial Position Sitting Pulse 80 Pulse Source Pulse Oximeter Pulse Oximetry (%) 95 Oxygen Delivery Method Room Air Intake Visit Reasons: 3 Month follow up Allergies amoxicillin [AMOXICILLIN] Allergy (Intermediate, Verified 04/27/23 09:02) RASH Penicillins [PENICILLINS] Allergy (Intermediate, Verified 04/27/23 09:02) RASH cephaloglycin [CEPHALOGLYCIN] Allergy (Mild, Verified 04/27/23 09:02) RASH ciprofloxacin [From CIPRO] Allergy (Mild, Verified 04/27/23 09:02) RASH penicillin V Allergy (Unknown, Verified 04/27/23 09:02) Unknown Amoxicillin Allergy (Unknown, Uncoded 05/20/22 08:09) Rash Cephadyn Allergy (Unknown, Uncoded 05/20/22 08:09) rash Cipro Allergy (Unknown, Uncoded 08/24/22 09:38) Rash penicillin Allergy (Unknown, Uncoded 08/24/22 09:38) Rash Medication List - Last Reconciled 04/27/23 by Brianna Gloria MD atorvastatin 40 mg PO DAILY blood sugar diagnostic (OneTouch Ultra Test strips) As directed 3x/day levothyroxine 88 mcg PO DAILY 90 days olmesartan 10 mg (2 x 5 mg) PO DAILY 90 days pen needle, diabetic As directed pioglitazone 30 mg PO DAILY semaglutide 1 mg (0.75 mL) subcut QWEEK 90 days Tobacco use date assessed: 04/27/23 Fall risk assessment: No Falls in past year Last assessed Fall Risk: 04/27/23 Dental Screening Dental Screen Date: 04/27/23 Did you have a dental visit in the last 12 months?: No Did you have a dental problem in the last 6 months where you did not have access to dental care?: No Was dental information given to patient?: No HPI 3 Month follow up HPI Details Patient is a 72-year-old female came in today for regular follow-up appointment Patient suffers from white coat hypertension, she is taking olmesartan 5 mg only , her blood pressure is running around 130s at home patient is monitoring it when she comes to clinic it is elevated, I checked it again after 15 minutes and it was 130s systolic. Hypothyroidism: Continue levothyroxine 88 mcg Diabetes mellitus : patient is on Actos 30 mg and Trulicity her hemoglobin A1c is stable Lipid disorder: Continue atorvastatin 40 mg patient is tolerating medication BMI is above 40 patient need to lose weight Follow-up 3 months PFS Medical History Positive HOLLY (antinuclear antibody) Hypothyroidism Hyperlipidemia LDL goal <100 Elevated LFTs Obesity due to excess calories Hypertension Controlled type 2 diabetes mellitus without complication Surgical History H/O colonoscopy Hx of dilation and curettage History of right oophorectomy Family History Sister Diabetes type 2, controlled Brother Diabetes, type I Social History Household Members: None Housing: House Alcohol intake: current Alcohol intake frequency: holidays/special occasions only Patient Tobacco Use Status: Former Tobacco user Years Smoked: 20 years e-Cigarette/Vaping Use: Never Used Second Hand Smoke Exposure: No service: No Current occupational status: retired Cognitive needs: No Hearing needs: No Vision needs: Yes Questionnaire Thrive Questionnaire Date Thrive assessed: 04/30/22 AUDIT C Alcohol Use Questionnaire (AUDIT-C) 1. How often do you have a drink containing alcohol?: Never 3. How often do you have six or more drinks on one occasion?: Never Total Score: 0 Score Reviewed/Action Taken: Yes Review of Systems Const Denies chills and Denies fever(s) ENT Denies epistaxis and Denies nasal discharge Card Denies chest pain Resp Denies chest congestion, Denies cough and Denies hemoptysis GI Denies diarrhea and Denies nausea Skin/Breast Denies rash Neuro Reports no additional complaints Psych Reports no additional complaints Endo Reports no additional complaints Physical exam (Primary Care) Vital Signs: Last Vital Signs Pulse 80 04/27/23 09:00 BP 174/98 H 04/27/23 09:00 Pulse Ox 95 04/27/23 09:00 Oxygen Delivery Method Room Air 04/27/23 09:00 BMI result Body Mass Index 41.3 Tobacco/Smoking Status: Tobacco use Status Tobacco use date assessed 04/27/23 04/27/23 09:04 Patient Tobacco Use Status Former Tobacco user 04/27/23 09:04 e-Cigarette/Vaping Use Never Used 04/27/23 09:04 Thrive Assessment: Date of Thrive Assessment Date Thrive assessed 04/30/22 04/27/23 09:04 Const General: cooperative, comfortable and no acute distress Orientation/consciousness: patient oriented x3 HENMT Head: Yes normocephalic Eyes General: appearance normal, both eyes and all related structures Neck Neck: Yes supple Resp Effort & Inspection: normal respiratory effort, no cough and no stridor Cardio Rhythm: regular rhythm Heart sounds: S1 normal heart sound present and S2 normal heart sound present Skin General skin exam: turgor normal Neuro General: patient oriented x3, tone normal and moves all extremities Extrem Right lower extremity: no edema Left lower extremity: no edema Assessment and Plan Assessment & Plan (1) Controlled type 2 diabetes mellitus without complication: Code(s): E11.9 - Type 2 diabetes mellitus without complications Qualifiers: Diabetes mellitus terminal make up operator insulin use: without intermediate use Qualified Code(s): E11.9 - Type 2 diabetes mellitus without complications (2) Hypothyroidism: Code(s): E03.9 - Hypothyroidism, unspecified Qualifiers: Hypothyroidism type: unspecified Qualified Code(s): E03.9 - Hypothyroidism, unspecified (3) Morbid obesity: Comment: If your BMI is between 25 and 29.9, you are overweight. If your BMI is 30 or greater, you are obese. ___ Being obese is a problem, because it increases the risks of many different health problems. It can also make it hard for you to move, breathe, and do other things that people who are at a healthy weight can do easily. Plus, being obese can be hard emotionally. ___ What are the health risks of being obese? Being obese increases a persons risk of developing many health problems. Here are just a few examples: __ Diabetes High blood pressure, High cholesterol, Heart disease (including heart attacks) Stroke, Sleep apnea (a disorder in which you stop breathing for short periods while asleep) Asthma, Cancer __ Does being obese shorten a persons life? Yes. Studies show that people who are obese younger than people who are a healthy weight. They also show that the risk of goes up the heavier a person is. The degree of increased risk depends on how long the person has been obese, and on what other medical problems he or she has. , Reduce your carbohydrate intake and choose carbs that are complex. Remember as a general rule of thumb, avoid highly processed foods. If it's white and soft, it's probably been stripped of its nutritional value. Change white bread to whole wheat bread, white rice to brown rice, white potatoes to sweet potatoes, white pasta to whole wheat pasta. Monitor portion sizes too: protein should be no bigger than your fist. Limit your red meat intake to only once or twice a wk. Eat more white meat but make sure to avoid creamy sauces etc. Broiling, baking or grilling is best. Increase dark, green leafy vegetables and fruits. Code(s): E66.01 - Morbid (severe) obesity due to excess calories (4) Lipid disorder: Code(s): E78.9 - Disorder of lipoprotein metabolism, unspecified (5) LFT elevation: Code(s): R79.89 - Other specified abnormal findings of blood chemistry (6) Hypertension: Code(s): I10 - Essential (primary) hypertension Qualifiers: Hypertension type: essential hypertension Qualified Code(s): I10 - Essential (primary) hypertension Plan Patient is a 72-year-old female came in today for regular follow-up appointment Patient suffers from white coat hypertension, she is taking olmesartan 5 mg only , her blood pressure is running around 130s at home patient is monitoring it when she comes to clinic it is elevated, I checked it again after 15 minutes and it was 130s systolic. Hypothyroidism: Continue levothyroxine 88 mcg Diabetes mellitus : patient is on Actos 30 mg and Trulicity her hemoglobin A1c is stable Lipid disorder: Continue atorvastatin 40 mg patient is tolerating medication BMI is above 40 patient need to lose weight Liver enzymes slightly elevated but stable Follow-up 3 months Orders: Orders Comprehensive [place]. Panel Fast Today E03.9 - Hypothyroidism, unspecified, E11.9 - Type 2 diabetes mellitus without complications, E66.01 - Morbid (severe) obesity due to excess calories, E78.9 - Disorder of lipoprotein metabolism, unspecified, R79.89 - Other specified abnormal findings of blood chemistry Lipid Panel Today E03.9 - Hypothyroidism, unspecified, E11.9 - Type 2 diabetes mellitus without complications, E66.01 - Morbid (severe) obesity due to excess calories, E78.9 - Disorder of lipoprotein metabolism, unspecified, R79.89 - Other specified abnormal findings of blood chemistry Microalbumin, Random (w Creat) Today E03.9 - Hypothyroidism, unspecified, E11.9 - Type 2 diabetes mellitus without complications, E66.01 - Morbid (severe) obesity due to excess calories, E78.9 - Disorder of lipoprotein metabolism, unspecified, R79.89 - Other specified abnormal findings of blood chemistry Complete Blood Count Auto Diff 3 Months E03.9 - Hypothyroidism, unspecified, E11.9 - Type 2 diabetes mellitus without complications, E66.01 - Morbid (severe) obesity due to excess calories, E78.9 - Disorder of lipoprotein metabolism, unspecified, I10 - Essential (primary) hypertension, R79.89 - Other specified abnormal findings of blood chemistry Lipid Panel 3 Months E03.9 - Hypothyroidism, unspecified, E11.9 - Type 2 diabetes mellitus without complications, E66.01 - Morbid (severe) obesity due to excess calories, E78.9 - Disorder of lipoprotein metabolism, unspecified, I10 - Essential (primary) hypertension, R79.89 - Other specified abnormal findings of blood chemistry Complete Blood Count Auto Diff Today E03.9 - Hypothyroidism, unspecified, E11.9 - Type 2 diabetes mellitus without complications, E66.01 - Morbid (severe) obesity due to excess calories, E78.9 - Disorder of lipoprotein metabolism, unspecified, R79.89 - Other specified abnormal findings of blood chemistry TSH reflex Free T4 Today E03.9 - Hypothyroidism, unspecified, E11.9 - Type 2 diabetes mellitus without complications, E66.01 - Morbid (severe) obesity due to excess calories, E78.9 - Disorder of lipoprotein metabolism, unspecified, R79.89 - Other specified abnormal findings of blood chemistry Hemoglobin A1c Today E03.9 - Hypothyroidism, unspecified, E11.9 - Type 2 diabetes mellitus without complications, E66.01 - Morbid (severe) obesity due to excess calories, E78.9 - Disorder of lipoprotein metabolism, unspecified, R79.89 - Other specified abnormal findings of blood chemistry Hemoglobin A1c 3 Months E03.9 - Hypothyroidism, unspecified, E11.9 - Type 2 diabetes mellitus without complications, E66.01 - Morbid (severe) obesity due to excess calories, E78.9 - Disorder of lipoprotein metabolism, unspecified, I10 - Essential (primary) hypertension, R79.89 - Other specified abnormal findings of blood chemistry Comprehensive [place]. Panel Fast 3 Months E03.9 - Hypothyroidism, unspecified, E11.9 - Type 2 diabetes mellitus without complications, E66.01 - Morbid (severe) obesity due to excess calories, E78.9 - Disorder of lipoprotein metabolism, unspecified, I10 - Essential (primary) hypertension, R79.89 - Other specified abnormal findings of blood chemistry TSH reflex Free T4 3 Months E03.9 - Hypothyroidism, unspecified, E11.9 - Type 2 diabetes mellitus without complications, E66.01 - Morbid (severe) obesity due to excess calories, E78.9 - Disorder of lipoprotein metabolism, unspecified, I10 - Essential (primary) hypertension, R79.89 - Other specified abnormal findings of blood chemistry Medications: Changed From olmesartan 10 mg (2 x 5 mg) PO DAILY 90 days 180 tabs 6RF To olmesartan 5 mg PO DAILY 90 tabs 1RF 90 days Refilled atorvastatin 40 mg PO DAILY 90 tabs 0RF E78.5 - Hyperlipidemia, unspecified levothyroxine 88 mcg PO DAILY 90 tabs 0RF 90 days E03.9 - Hypothyroidism, unspecified pioglitazone 30 mg PO DAILY 90 tabs 0RF E11.9 - Type 2 diabetes mellitus without complications semaglutide Administer 1mg weekly 1 mg (0.75 mL) subcut QWEEK 9.75 mL 1RF 90 days E11.9 - Type 2 diabetes mellitus without complications Coding Level of Care Code Est Pt Level 4 (08465) Diagnoses Controlled type 2 diabetes mellitus without complication, without long-term current use of insulin E11.9 Diabetes mellitus intermediate insulin use: without intermediate use Hypothyroidism, unspecified type E03.9 Hypothyroidism type: unspecified Morbid obesity E66.01 Lipid disorder E78.9 LFT elevation R79.89 Essential hypertension I10 Hypertension type: essential hypertension
[2023-04-27 09:00] VITALS: BP 174/98; PULSE 80; O2SAT 95; BMI 41.3
== END 2023-04-27 09:40 | disposition home or self-care (01) ==
PROVIDERS: PCP Internal Medicine; Visit Provider Internal Medicine
DX: E11.9 Type 2 diabetes mellitus without complications (principal); E66.01 Morbid (severe) obesity due to excess calories; Z68.41 Body mass index [BMI] 40.0-44.9, adult; E03.9 Hypothyroidism, unspecified; E78.9 Disorder of lipoprotein metabolism, unspecified; R79.89 Other specified abnormal findings of blood chemistry; I10 Essential (primary) hypertension
CPT/HCPCS: 99214

== ENCOUNTER 2023-04-27 09:41 | Outpatient (REF) | payer MEDICARE, BC, SELFPAY ==
[2023-04-27 11:34] LABS: MANUAL DIFF FLAG NO
[2023-04-27 11:40] LABS: Basophils Percent Auto 0.7 % (0-2); Eosinophils Absolute Auto 0.2 X10*3/uL (0.0-0.4); Eosinophils Percent Auto 3.3 % (0-4); Hematocrit 44.2 % (37.0-47.0); Hemoglobin 14.4 g/dl (12.0-16.0); Imm Gran Abs Auto 0.02 X10*3/uL (0.00-0.03); Imm Gran Pct Auto 0.3 % (0.0-0.4); Lymphocytes Absolute Auto 1.4 X10*3/uL (1.2-4.9); Lymphocytes Percent Auto 22.1 % (20-40); Mean Corpuscular HGB Conc 32.6 g/dl (31.0-35.0); Mean Corpuscular Hemoglobin 30.6 pg (27.0-33.0); Mean Platelet Volume 9.5 fL (9.4-12.3); Monocytes Absolute Auto 0.4 X10*3/uL (0.1-1.2); Monocytes Percent Auto 6.9 % (2-11); Neutrophils Absolute Auto 4.1 x10*3/uL (2.0-8.3); Neutrophils Percent Auto 66.7 % (45-73); Platelet Count 213 X10*3/uL (160-400); Red Cell Distribution Width 14.6 % (11.0-16.0); White Blood Count 6.1 X10*3/uL (4.8-10.8)
[2023-04-27 11:55] LABS: Estimated Average Glucose 126 mg/dL
[2023-04-27 12:03] LABS: Alanine Aminotransferase 32 U/L (0-31); Albumin Level 3.8 g/dL (3.5-5.0); Alkaline Phosphatase 71 U/L (39-117); Anion Gap 14 (12-20); Aspartate Amino Transferase 28 U/L (5-31); Bilirubin Total 0.9 mg/dL (0.0-1.0); Blood Urea Nitrogen 14 mg/dL (9-16); Carbon Dioxide 24 mmol/L (22-29); Chloride 109 mmol/L (96-108); Cholesterol 151 mg/dL (<200); Estimated Glomerular Filt Rate > 60; Glucose Fasting 143 mg/dL (60-99); HDL Cholesterol 51 mg/dL (>40); LDL Cholesterol Calculated 72 mg/dL (<100); Potassium 4.2 mmol/L (3.3-5.1); Sodium 143 mmol/L (135-145); Total Protein 6.9 g/dL (6.5-8.0); Triglycerides 144 mg/dL (<150)
[2023-04-27 12:17] LABS: Creatinine Urine 234.38 mg/dL; Microalbum/Creatinine Ratio Ur 8.9 ug/mg cr (<30)
[2023-04-27 12:24] LABS: TSH reflex Free T4 2.98 uIU/mL (0.32-4.0)
== END 2023-04-27 09:42 | disposition home or self-care (01) ==
LOC: HO.HMGCLDS 09:41
PROVIDERS: PCP Internal Medicine; Visit Provider Internal Medicine
DX: E11.9 Type 2 diabetes mellitus without complications (principal); E03.9 Hypothyroidism, unspecified; E66.01 Morbid (severe) obesity due to excess calories; E78.9 Disorder of lipoprotein metabolism, unspecified; R79.89 Other specified abnormal findings of blood chemistry
CPT/HCPCS: 36415; 80053; 80061; 82043; 82570; 83036; 84443; 85025

== ENCOUNTER 2023-08-23 07:12 | Outpatient (REF) | payer MEDICARE, BC, SELFPAY ==
[2023-08-23 10:19] LABS: MANUAL DIFF FLAG NO
[2023-08-23 10:34] LABS: Basophils Absolute Auto 0.1 X10*3/uL (0.0-0.2); Basophils Percent Auto 0.9 % (0-2); Eosinophils Absolute Auto 0.2 X10*3/uL (0.0-0.4); Eosinophils Percent Auto 3.1 % (0-4); Hemoglobin 14.6 g/dl (12.0-16.0); Imm Gran Abs Auto 0.03 X10*3/uL (0.00-0.03); Imm Gran Pct Auto 0.4 % (0.0-0.4); Lymphocytes Absolute Auto 1.9 X10*3/uL (1.2-4.9); Lymphocytes Percent Auto 24.8 % (20-40); Mean Corpuscular HGB Conc 32.4 g/dl (31.0-35.0); Mean Corpuscular Hemoglobin 31.2 pg (27.0-33.0); Mean Corpuscular Volume 96.2 fL (80.0-98.0); Mean Platelet Volume 9.5 fL (9.4-12.3); Monocytes Absolute Auto 0.5 X10*3/uL (0.1-1.2); Monocytes Percent Auto 6.7 % (2-11); Neutrophils Percent Auto 64.1 % (45-73); Platelet Count 218 X10*3/uL (160-400); Red Blood Count 4.68 X10*6/uL (4.20-5.50); Red Cell Distribution Width 14.7 % (11.0-16.0); White Blood Count 7.8 X10*3/uL (4.8-10.8)
[2023-08-23 10:35] LABS: Estimated Average Glucose 128 mg/dL; Hemoglobin A1c % 6.1 % (<6.0)
[2023-08-23 10:47] LABS: Alanine Aminotransferase 33 U/L (0-31); Albumin Level 3.8 g/dL (3.5-5.0); Alkaline Phosphatase 78 U/L (39-117); Anion Gap 13 (12-20); Aspartate Amino Transferase 26 U/L (5-31); Bilirubin Total 0.7 mg/dL (0.0-1.0); Blood Urea Nitrogen 19 mg/dL (9-16); Calcium 9.9 mg/dL (8.4-10.2); Carbon Dioxide 26 mmol/L (22-29); Chloride 107 mmol/L (96-108); Cholesterol 151 mg/dL (<200); Estimated Glomerular Filt Rate > 60; Glucose Fasting 113 mg/dL (60-99); HDL Cholesterol 51 mg/dL (>40); LDL Cholesterol Calculated 73 mg/dL (<100); Potassium 4.4 mmol/L (3.3-5.1); Sodium 142 mmol/L (135-145); Total Protein 6.9 g/dL (6.5-8.0); Triglycerides 139 mg/dL (<150)
[2023-08-23 10:55] LABS: TSH reflex Free T4 2.03 uIU/mL (0.32-4.0)
== END 2023-08-23 07:13 | disposition home or self-care (01) ==
LOC: HO.HMGCLDS 07:12
PROVIDERS: PCP Internal Medicine; Visit Provider Internal Medicine
DX: R79.89 Other specified abnormal findings of blood chemistry (principal); E78.9 Disorder of lipoprotein metabolism, unspecified; E66.01 Morbid (severe) obesity due to excess calories; E03.9 Hypothyroidism, unspecified; E11.9 Type 2 diabetes mellitus without complications; I10 Essential (primary) hypertension
CPT/HCPCS: 36415; 80053; 80061; 83036; 84443; 85025

== ENCOUNTER 2023-08-31 14:34 | Outpatient (AMB) | payer MEDICARE, BC, SELFPAY ==
[2023-08-31 14:39] VITALS: BP 172/64; PULSE 84; O2SAT 98; BMI 41.4
--- NOTE | 2023-08-31 14:39 | A.OFFPC_ITS ---
Vital Signs 08/31/23 14:39 08/31/23 14:57 Height 5 ft 1 in Weight 219 lb 6 oz BMI 41.4 BP 172/64 H 155/80 H Blood Pressure Location Lt brachial Position Sitting Pulse 84 Pulse Source Pulse Oximeter Pulse Oximetry (%) 98 Oxygen Delivery Method Room Air Intake Visit Reasons: follow up Allergies amoxicillin [AMOXICILLIN] Allergy (Intermediate, Verified 08/31/23 14:41) RASH Penicillins [PENICILLINS] Allergy (Intermediate, Verified 08/31/23 14:41) RASH cephaloglycin [CEPHALOGLYCIN] Allergy (Mild, Verified 08/31/23 14:41) RASH ciprofloxacin [From CIPRO] Allergy (Mild, Verified 08/31/23 14:41) RASH penicillin V Allergy (Unknown, Verified 08/31/23 14:41) Unknown Amoxicillin Allergy (Unknown, Uncoded 05/20/22 08:09) Rash Cephadyn Allergy (Unknown, Uncoded 05/20/22 08:09) rash Cipro Allergy (Unknown, Uncoded 08/24/22 09:38) Rash penicillin Allergy (Unknown, Uncoded 08/24/22 09:38) Rash Medication List - Last Reconciled 08/31/23 by Brianna Gloria MD atorvastatin 40 mg PO DAILY blood sugar diagnostic (OneTouch Ultra Test strips) As directed 3x/day levothyroxine 88 mcg PO DAILY 90 days olmesartan 5 mg PO DAILY 90 days pen needle, diabetic As directed pioglitazone 30 mg PO DAILY semaglutide 1 mg (0.75 mL) subcut QWEEK 90 days Tobacco use date assessed: 08/31/23 Fall risk assessment: No Falls in past year Last assessed Fall Risk: 08/31/23 Dental Screening Dental Screen Date: 08/31/23 Did you have a dental visit in the last 12 months?: Yes Did you have a dental problem in the last 6 months where you did not have access to dental care?: No Was dental information given to patient?: Patient has dentist HPI follow up HPI Details Patient is a 73-year-old female came in today for regular follow-up appointment Patient suffers from white coat hypertension, she is taking olmesartan 5 mg only , she could not tolerate 10 mg of olmesartan I have rechecked her blood pressure it is 155/80 after 10 minutes of sitting down I have told her to try olmesartan 5 mg b.i.d., she is monitoring her blood pres sure at home as well which runs around 140 systolic But it is a wrist blood pressure monitor which is not very accurate Hypothyroidism: Continue levothyroxine 88 mcg Diabetes mellitus : patient is on Actos 30 mg and Trulicity her hemoglobin A1c is stable at 6.1 Lipid disorder: Continue atorvastatin 40 mg patient is tolerating medication BMI is above 40 patient need to lose weight ALT slightly elevated but stable Patient will be switching to a new provider next visit as per her wish ON LICENSE OF [facility] Medical History Positive HOLLY (antinuclear antibody) Hypothyroidism Hyperlipidemia LDL goal <100 Elevated LFTs Obesity due to excess calories Hypertension Controlled type 2 diabetes mellitus without complication Surgical History H/O colonoscopy Hx of dilation and curettage History of right oophorectomy Family History Sister Diabetes type 2, controlled Brother Diabetes, type I Social History Household Members: None Housing: House Alcohol intake: current Alcohol intake frequency: holidays/special occasions only Patient Tobacco Use Status: Former Tobacco user Years Smoked: 20 years e-Cigarette/Vaping Use: Never Used Second Hand Smoke Exposure: No service: No Current occupational status: retired Cognitive needs: No Hearing needs: No Vision needs: Yes Questionnaire Thrive Questionnaire Date Thrive assessed: 04/30/22 AUDIT C Alcohol Use Questionnaire (AUDIT-C) 1. How often do you have a drink containing alcohol?: Never 3. How often do you have six or more drinks on one occasion?: Never Total Score: 0 Score Reviewed/Action Taken: Yes Review of Systems Const Denies chills and Denies fever(s) ENT Denies epistaxis and Denies nasal discharge Card Denies chest pain Resp Denies chest congestion, Denies cough and Denies hemoptysis GI Denies diarrhea and Denies nausea Skin/Breast Denies rash Neuro Reports no additional complaints Psych Reports no additional complaints Endo Reports no additional complaints Physical exam (Primary Care) Vital Signs: Last Vital Signs Pulse 84 08/31/23 14:39 BP 172/64 H 08/31/23 14:39 Pulse Ox 98 08/31/23 14:39 Oxygen Delivery Method Room Air 08/31/23 14:39 BMI result Body Mass Index 41.4 Tobacco/Smoking Status: Tobacco use Status Tobacco use date assessed 08/31/23 08/31/23 14:42 Patient Tobacco Use Status Former Tobacco user 08/31/23 14:42 e-Cigarette/Vaping Use Never Used 08/31/23 14:42 Thrive Assessment: Date of Thrive Assessment Date Thrive assessed 04/30/22 08/31/23 14:42 Const General: cooperative, comfortable and no acute distress Orientation/consciousness: patient oriented x3 HENMT Head: Yes normocephalic Eyes General: appearance normal, both eyes and all related structures Neck Neck: Yes supple Resp Effort & Inspection: normal respiratory effort, no cough and no stridor Cardio Rhythm: regular rhythm Heart sounds: S1 normal heart sound present and S2 normal heart sound present Skin General skin exam: turgor normal Neuro General: patient oriented x3, tone normal and moves all extremities Extrem Right lower extremity: no edema Left lower extremity: no edema Assessment and Plan Assessment & Plan (1) Controlled type 2 diabetes mellitus without complication: Code(s): E11.9 - Type 2 diabetes mellitus without complications Qualifiers: Diabetes mellitus emt intermediate insulin use: without emt intermediate use Qualified Code(s): E11.9 - Type 2 diabetes mellitus without complications (2) Hypothyroidism: Code(s): E03.9 - Hypothyroidism, unspecified Qualifiers: Hypothyroidism type: unspecified Qualified Code(s): E03.9 - Hypothyroidism, unspecified (3) Morbid obesity: Code(s): E66.01 - Morbid (severe) obesity due to excess calories (4) Lipid disorder: Code(s): E78.9 - Disorder of lipoprotein metabolism, unspecified (5) LFT elevation: Code(s): R79.89 - Other specified abnormal findings of blood chemistry (6) Hypertension: Code(s): I10 - Essential (primary) hypertension Qualifiers: Hypertension type: essential hypertension Qualified Code(s): I10 - Essential (primary) hypertension Plan Patient is a 73-year-old female came in today for regular follow-up appointment Patient suffers from white coat hypertension, she is taking olmesartan 5 mg only , she could not tolerate 10 mg of olmesartan I have rechecked her blood pressure it is 155/80 after 10 minutes of sitting down I have told her to try olmesartan 5 mg b.i.d., she is monitoring her blood pressure at home as well which runs around 140 systolic But it is a wrist blood pressure monitor which is not very accurate Hypothyroidism: Continue levothyroxine 88 mcg Diabetes mellitus : patient is on Actos 30 mg and Trulicity her hemoglobin A1c is stable at 6.1 Lipid disorder: Continue atorvastatin 40 mg patient is tolerating medication BMI is above 40 patient need to lose weight ALT slightly elevated but stable Patient will be switching to a new provider next visit as per her wish Coding Level of Care Code Est Pt Level 4 (86238) Complex EM visit Add On [id number] Diagnoses Controlled type 2 diabetes mellitus without complication, without long-term current use of insulin E11.9 Diabetes mellitus emt intermediate insulin use: without emt intermediate use Hypothyroidism, unspecified type E03.9 Hypothyroidism type: unspecified Morbid obesity E66.01 Lipid disorder E78.9 LFT elevation R79.89 Essential hypertension I10 Hypertension type: essential hypertension
[2023-08-31 14:57] VITALS: BP 155/80
== END 2023-08-31 15:29 | disposition home or self-care (01) ==
PROVIDERS: PCP Internal Medicine; Visit Provider Internal Medicine
DX: E11.9 Type 2 diabetes mellitus without complications (principal); E66.01 Morbid (severe) obesity due to excess calories; Z68.41 Body mass index [BMI] 40.0-44.9, adult; E03.9 Hypothyroidism, unspecified; E78.9 Disorder of lipoprotein metabolism, unspecified; R79.89 Other specified abnormal findings of blood chemistry; I10 Essential (primary) hypertension
CPT/HCPCS: 99214; G2211

== ENCOUNTER 2023-09-14 13:50 | Emergency (ER) | payer MEDICARE, BC, SELFPAY ==
--- NOTE | ~2023-09-14 | XR_ITS ---
EXAMINATION: XR ANKLE, LEFT XR FOOT, LEFT CLINICAL INFORMATION: Patient fall. Pain injury. COMPARISON: None available. TECHNIQUE: 3 views of left foot with additional 2 views of the left ankle. FINDINGS: LEFT ANKLE: Mild soft tissue swelling laterally. Possible small avulsion fracture off the distal tip of the fibula. There is additional oval-shaped lucency with fat density distal to the distal fibula. This measures 2.8 x 1.6 cm. Remaining bones, joints and soft tissues are normal. LEFT FOOT: There is soft tissue swelling of the dorsal aspect of the ankle, hindfoot and midfoot. The bone and joints are unremarkable. XR/XR foot LT 2V IMPRESSION: LEFT ANKLE: 1. Possible small avulsion fracture off the distal tip of the fibula. Soft tissue swelling. 2. Lucency with fat density distal to the distal fibula of uncertain etiology. This could reflect a lipoma. This could be artifactual related to the adjacent soft tissue swelling. Correlate clinically to determine if there is any mass in this location. This could be reassessed after resolution of patient's reported injury to determine whether any further workup is necessary. LEFT FOOT: 1. Soft tissue swelling. 2. No acute abnormality of the foot.
--- NOTE | ~2023-09-14 | XR_ITS ---
EXAMINATION: XR ANKLE, LEFT XR FOOT, LEFT CLINICAL INFORMATION: Patient fall. Pain injury. COMPARISON: None available. TECHNIQUE: 3 views of left foot with additional 2 views of the left ankle. FINDINGS: LEFT ANKLE: Mild soft tissue swelling laterally. Possible small avulsion fracture off the distal tip of the fibula. There is additional oval-shaped lucency with fat density distal to the distal fibula. This measures 2.8 x 1.6 cm. Remaining bones, joints and soft tissues are normal. LEFT FOOT: There is soft tissue swelling of the dorsal aspect of the ankle, hindfoot and midfoot. The bone and joints are unremarkable. XR/XR ankle LT min 3V IMPRESSION: LEFT ANKLE: 1. Possible small avulsion fracture off the distal tip of the fibula. Soft tissue swelling. 2. Lucency with fat density distal to the distal fibula of uncertain etiology. This could reflect a lipoma. This could be artifactual related to the adjacent soft tissue swelling. Correlate clinically to determine if there is any mass in this location. This could be reassessed after resolution of patient's reported injury to determine whether any further workup is necessary. LEFT FOOT: 1. Soft tissue swelling. 2. No acute abnormality of the foot.
[2023-09-14 13:56] VITALS: BP 150/71; PULSE 84; RESP 18; TEMP 36.6; O2SAT 97; BMI 18.9
--- NOTE | 2023-09-14 13:57 | ED.GENADULT ---
HPI - General Adult General Chief complaint: Extremity Injury, Lower Stated complaint: L ankle injury Time Seen by Provider: 09/14/23 14:04 Source: patient Mode of arrival: ambulatory Limitations: no limitations History of Present Illness ED Provider: Mike LÓPEZ HPI narrative: 73 year old female hx obesity, htn. hld, hypothyroidism, DMII, NAFLD, + HOLLY presents w/ L foot and ankle pain X 2 days. Pain started after patient twisted her ankle, she states she stepped on the pool cover accidentally and rolled her ankle. Pain worse w/ weight bearing and better at rest. No numbness, tingling, cp, sob, headache, vision changes, dizziness, weakness, or any other injuries from this event. No previous issues w/ L ankle. Related Data Home Medications ?Medication ?Instructions ?Recorded ?Confirmed pen needle, diabetic 32 gauge x #50 ea 04/21/20 08/31/23 Previous Rx's ?Medication ?Instructions ?Recorded olmesartan 5 mg tablet 5 mg PO DAILY 90 days #90 tabs 04/27/23 semaglutide 1 mg/dose (4 mg/3 mL) 1 mg (0.75 mL) subcut QWEEK 90 04/27/23 subcutaneous pen injector days #9.75 mL blood sugar diagnostic (OneTouch #300 ea 04/29/23 Ultra Test strips) levothyroxine 88 mcg tablet 88 mcg PO DAILY 90 days #90 tabs 08/01/23 pioglitazone 30 mg tablet 30 mg PO DAILY #90 tabs 08/01/23 atorvastatin 40 mg tablet 40 mg PO DAILY #90 tabs 08/29/23 acetaminophen 325 mg capsule 650 mg (2 x 325 mg) PO Q4H PRN 09/14/23 (Tylenol) pain #30 caps Allergies Allergy/AdvReac Type Severity Reaction Status Date / Time amoxicillin [AMOXICILLIN] Allergy Intermediate RASH Verified 09/14/23 13:58 Penicillins [PENICILLINS] Allergy Intermediate RASH Verified 09/14/23 13:58 cephaloglycin [CEPHALOGLYCIN] Allergy Mild RASH Verified 09/14/23 13:58 ciprofloxacin [From CIPRO] Allergy Mild RASH Verified 09/14/23 13:58 penicillin V Allergy Unknown Unknown Verified 09/14/23 13:58 Amoxicillin Allergy Unknown Rash Uncoded 09/14/23 13:58 Cephadyn Allergy Unknown rash Uncoded 09/14/23 13:58 Cipro Allergy Unknown Rash Uncoded 09/14/23 13:58 penicillin Allergy Unknown Rash Uncoded 09/14/23 13:58 [facility] Past Medical History Medical History Positive HOLLY (antinuclear antibody) Hypothyroidism Hyperlipidemia LDL goal <100 Elevated LFTs Obesity due to excess calories Hypertension Controlled type 2 diabetes mellitus without complication Surgical History H/O colonoscopy Hx of dilation and curettage History of right oophorectomy Family History Family History Sister Diabetes type 2, controlled Brother Diabetes, type I Social History Social History Household Members: None Housing: House Alcohol intake: current Alcohol intake frequency: holidays/special occasions only Patient Tobacco Use Status: Former Tobacco user Years Smoked: 20 years e-Cigarette/Vaping Use: Never Used Second Hand Smoke Exposure: No service: No Current occupational status: retired Cognitive needs: No Hearing needs: No Vision needs: Yes Physical Exam ED Vital Signs: Vital Signs - 24 hr 09/14/23 13:56 Temperature 98 F Pulse Rate 84 Respiratory Rate 18 Blood Pressure 150/71 H Pulse Oximetry 97 Oxygen Delivery Method Room Air BMI result Body Mass Index 18.9 vss Appearance: Alert.? Oriented X3.? No acute distress.? Head: Normocephalic, atraumatic, no step-offs or deformities Eyes: Pupils equal, round and reactive to light.? ENT: Pharynx normal.? Neck: Normal inspection.? Neck supple.? CVS: Normal heart rate and rhythm.? Pulses normal.? Respiratory: No respiratory distress.? Breath sounds normal.? Abdomen: Soft and nontender.? Skin: Skin warm and dry.? Normal skin color.? Normal skin turgor.? Extremities: No lower extremity edema.? No calf ttp. 5/5 strength to bilateral upper and lower extremities 5/5 strength to bilateral upper and lower extremities. + swelling to left foot / ankle no overlying skin changes. 2+ dp,at,pt pulses euqal and b/l + ttp to the top lateral aspect of left foot. Normal sensation distally b/l. Full rom to toes and ankes b/l. Ambulating w/ steady gait normal coordination. Neuro: Oriented X 3.? No motor deficit.? No sensory deficit. CN 2-12 intact Course Course Course Narrative: This is an RME done by ARCHIE Leiva: Additional HPI, ROS, PE not included below will be deferred to primary provider. 73 year old female presents w/ L foot and ankle pain X 2 days. Pain started after patient twisted her ankle, she states she stepped on the pool cover accidentally and rolled her ankle. Pain worse w/ weight bearing and better at rest. No numbness, tingling, cp, sob, headache, vision changes, dizziness, weakness, or any other injuries from this event. No previous issues w/ L ankle. Appearance: Alert.? Oriented X3.? No acute cardiopulmonary distress distress.? Head: Normocephalic, atraumatic, no step-offs or deformities Neck: Normal inspection.? Neck supple.? CVS: Pulses normal.? Respiratory: No respiratory distress.? Abdomen: Soft and nontender.? Skin: ? Normal skin color. Extremities: 5/5 strength to bilateral upper and lower extremities. + swelling to left foot / ankle no overlying skin changes. 2+ dp,at,pt pulses euqal and b/l + ttp to the top lateral aspect of left foot. Normal sensation distally b/l. Full rom to toes and ankes b/l. Ambulating w/ steady gait normal coordination. Back: No midline tenderness, no C-spine tenderness, full range of motion, No CVA tenderness bilaterally Neuro: Oriented X 3.? No motor deficit.? No sensory deficit. Reevaluation(s) Reevaluation #1: Left foot soft tissue swelling. No acute abnormality of the foot. Left ankle possible avulsion fracture of the distal tip of the fibula. Will place in a walking boot. Can not tollerate crutches so will hold on this. Will have her follow up with ortho. Educated patient on diagnosis and treatment plan, answered all question, patient verbalizes understanding. At this time patient will be discharged home, advised to return with new or worsening symptoms. Educated on worrisome signs and symptoms and when to return. At this time I feel comfortable discharge home. Time: 15:54 Medical Decision Making Medical Decision Making [facility] Narrative: 1400 73 year old female presents w/ l ankle pain s/p rolling ankle two days ago PE 5/5 strength to bilateral upper and lower extremities 5/5 strength to bilateral upper and lower extremities. + swelling to left foot / ankle no overlying skin changes. 2+ dp,at,pt pulses euqal and b/l + ttp to the top lateral aspect of left foot. Normal sensation distally b/l. Full rom to toes and ankes b/l. Ambulating w/ steady gait normal coordination. History and physical exam concerning for sprain or strain. Unlikely fracture, dislocation, neurovascular compromise, threat to Deleon, arterial or venous occlusion. Plan x-ray. Differential Diagnosis Differential Diagnoses: The differential diagnosis associated with the presentation includes History and physical exam concerning for sprain or strain. Unlikely fracture, dislocation, neurovascular compromise, threat to Deleon, arterial or venous occlusion. Admission/Observation Consideration of admission/observation: Escalation of care including admission/observation considered No indication Lab Data [facility] Lab Attestation statement: I reviewed the patient's lab results. Independent Interpretation I performed an independent interpretation of an: Plain X-Ray (XR/XR ankle LT min 3V IMPRESSION: LEFT ANKLE: 1. Possible small avulsion fracture off the distal tip of the fibula. Soft tissue swelling. 2. Lucency with fat density distal to the distal fibula of uncertain etiology. This could reflect a lipoma. This could be artifactual related to the adjacent sof) Radiology Impression Discussion of test interpretation with radiology: I have reviewed the radiologist's reading. Prescription Management I considered prescription management with: Pain Medication (tylenol ) Chronic Conditions Patient?s care impacted by: Other (obesity, htn. hld, hypothyroidism, DMII, NAFLD, + HOLLY ) Discharge Plan Discharge Clinical Impression: Strain of foot, left, Avulsion fracture Patient Disposition: Home, Self-Care Instructions: R.I.C.E. Treatment (ED) Additional Instructions: Take your medications as prescribed. If you were prescribed antibiotics today, it is important that you take your medication to their entirety, do not skip any doses, do not finish them early. Follow-up with your primary care provider this week. Return to the emergency department with new or worsening symptoms. In case of emergency call 911 XR/XR ankle LT min 3V IMPRESSION: LEFT ANKLE: 1. Possible small avulsion fracture off the distal tip of the fibula. Soft tissue swelling. 2. Lucency with fat density distal to the distal fibula of uncertain etiology. This could reflect a lipoma. This could be artifactual related to the adjacent soft tissue swelling. Correlate clinically to determine if there is any mass in this location. This could be reassessed after resolution of patient's reported injury to determine whether any further workup is necessary. LEFT FOOT: 1. Soft tissue swelling. 2. No acute abnormality of the foot. Prescriptions: New acetaminophen [Tylenol] 325 mg capsule 650 mg PO Q4H PRN (Reason: pain) Qty: 30 0RF No Action (DME) OneTouch Ultra Test Strip See Rx Instructions .Route Qty: 300 3RF Rx Instructions: As directed 3x/day pioglitazone 30 mg tablet 30 mg PO DAILY Qty: 90 0RF levothyroxine 88 mcg tablet 88 mcg PO DAILY 90 Days Qty: 90 0RF atorvastatin 40 mg tablet 40 mg PO DAILY Qty: 90 0RF olmesartan 5 mg tablet 5 mg PO DAILY 90 Days Qty: 90 1RF semaglutide 1 mg/dose (4 mg/3 mL) pen injector 1 mg subcut QWEEK 90 Days Qty: 9.75 1RF Rx Instructions: Administer 1mg weekly (DME) pen needle, diabetic 32 gauge x 5/32 needle See Rx Instructions .ROUTE QWEEK Qty: 50 Rx Instructions: As directed Referrals: [facility] [Provider Group] - 1 week Brianna Gloria MD [Primary Care Provider] - 2 days Print Language: Portuguese
== END 2023-09-14 16:12 | disposition home or self-care (01) ==
LOC: HO.ED 16:01
PROVIDERS: Emergency Provider Emergency Medicine Emergency Medical Services; PCP Internal Medicine
DX: S96.912A Strain of unspecified muscle and tendon at ankle and foot level, left foot, initial encounter (principal); S82.492A Other fracture of shaft of left fibula, initial encounter for closed fracture; X50.1XXA Overexertion from prolonged static or awkward postures, initial encounter; E11.9 Type 2 diabetes mellitus without complications; I10 Essential (primary) hypertension; E78.5 Hyperlipidemia, unspecified; Z79.02 Long term (current) use of antithrombotics/antiplatelets; Z79.899 Other long term (current) drug therapy; Z87.891 Personal history of nicotine dependence; Y93.89 Activity, other specified; Y92.016 Swimming-pool in single-family (private) house or garden as the place of occurrence of the external cause; Y99.9 Unspecified external cause status
CPT/HCPCS: 73610; 73620; 99283

== ENCOUNTER 2023-09-30 10:15 | Outpatient (AMB) | payer MEDICARE, BC, SELFPAY ==
[2023-09-30 11:02] VITALS: BMI 39.7
--- NOTE | 2023-09-30 11:02 | MHC.OFFVIS ---
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 She was seen in [facility] ED 09/14/23 for this injury. Patient reports pain started after she rolled her ankle on 09/13/23. She explains she stepped onto a pool with the cover still on and rolled her ankle. Pain worse when weight bearing and with ambulation, better at rest. [facility] provided her with a boot, she used it twice she states but felt it was too big and once she began ambulating with it on she felt as if her back would go out. No numbness, tingling. Hx of DM. Allergies amoxicillin [AMOXICILLIN] Allergy (Intermediate, Verified 09/30/23 11:02) RASH Penicillins [PENICILLINS] Allergy (Intermediate, Verified 09/30/23 11:02) RASH cephaloglycin [CEPHALOGLYCIN] Allergy (Mild, Verified 09/30/23 11:02) RASH ciprofloxacin [From CIPRO] Allergy (Mild, Verified 09/30/23 11:02) RASH penicillin V Allergy (Unknown, Verified 09/30/23 11:02) Unknown Amoxicillin Allergy (Unknown, Uncoded 09/14/23 13:58) Rash Cephadyn Allergy (Unknown, Uncoded 09/14/23 13:58) rash Cipro Allergy (Unknown, Uncoded 09/14/23 13:58) Rash penicillin Allergy (Unknown, Uncoded 09/14/23 13:58) Rash HPI HPI LIVESTOCK RANCHER-Left ankle injury: Details: 73-year-old female who presents to the office today for an evaluation of left ankle injury after stepping onto a pool with the cover still on and rolled her ankle. She was seen at ED on 09/14/23 where she was given a boot which she only used twice as it was too big. She currently states she has pain in her left ankle that is aggravated with weight bearing and ambulation. She denies any numbness or tingling. She finds relief with resting. She has a history of diabetes. [facility] Medical History Positive HOLLY (antinuclear antibody) Hypothyroidism Hyperlipidemia LDL goal <100 Elevated LFTs Obesity due to excess calories Hypertension Controlled type 2 diabetes mellitus without complication Surgical History H/O colonoscopy Hx of dilation and curettage History of right oophorectomy Family History Sister Diabetes type 2, controlled Brother Diabetes, type I Social History Household Members: None Housing: House Alcohol intake: current Alcohol intake frequency: holidays/special occasions only Patient Tobacco Use Status: Former Tobacco user Years Smoked: 20 years e-Cigarette/Vaping Use: Never Used Second Hand Smoke Exposure: No service: No Current occupational status: retired Cognitive needs: No Hearing needs: No Vision needs: Yes Review of Systems Const All systems reviewed & are unremarkable except as noted in HPI and below Physical Exam Vital Signs: BMI result Body Mass Index 39.7 Const General: cooperative, healthy appearing, comfortable, no acute distress, well developed and alert Orientation/consciousness: patient oriented x3 HEENT Head: Yes normal to inspection, Yes normocephalic and Yes atraumatic Eyes General: appearance normal, both eyes and all related structures Resp Effort & Inspection: normal respiratory effort and able to speak in complete sentences Cardio Rate: regular rate Peripheral pulses: Peripheral pulses 2+ throughout GI Palpation (GI): Soft to palpation Skin Lesions: no lesions Rashes: no rashes Neuro General: patient oriented x3 Extrem Other: Left ankle: Normal to inspection with mild swelling over the medial and lateral malleolus with tenderness along the soft tissues.No discomfort along the posterior aspect of the ankle, no deformity along the Achilles tendon, negative Clark?s. No pain along the syndesmosis or anterior tibia. No laxity, NVI. Assessment & Plan Assessment & Plan (1) Left ankle sprain: Code(s): S93.402A - Sprain of unspecified ligament of left ankle, initial encounter Category: Medical Qualifiers: Encounter type: initial encounter Involved ligament of ankle: anterior talofibular ligament Qualified Code(s): S93.492A - Sprain of other ligament of left ankle, initial encounter Plan She was given a lace up ankle brace for support. She was also offered physical therapy which she declined. I did stress the importance of proper rehabbing the ankle for strengthening and stability. She does express understanding but would still defer. If symptoms persist or worsen, patient will contact the office, otherwise follow-up as needed. Patient Instructions: Scribed for Micki Velazquez PA-C, by Chano Junior medical information officer, on 09/30/2023 at 11:00 AM EST.? I, Micki Velazquez PA-C, have personally reviewed and agree with the information entered by the scribe. Coding Level of Care Code New Pt Level 3 (13818) Diagnoses Sprain of anterior talofibular ligament of left ankle, initial encounter S93.492A Encounter type: initial encounter Involved ligament of ankle: anterior talofibular ligament
== END 2023-09-30 11:51 | disposition home or self-care (01) ==
PROVIDERS: PCP Internal Medicine; Visit Provider Physician Assistant
DX: S93.492A Sprain of other ligament of left ankle, initial encounter (principal)
CPT/HCPCS: 99203; 99213

== ENCOUNTER → 2023-09-30 10:15 | Outpatient (BNVA) | payer MEDICARE, BC, SELFPAY | PROVIDERS: PCP Internal Medicine; Visit Provider Physician Assistant | DX: S93.492A Sprain of other ligament of left ankle, initial encounter (principal) | CPT/HCPCS: 99202 ==

== ENCOUNTER 2024-01-03 07:44 | Outpatient (REF) | payer MEDICARE, BC, SELFPAY ==
--- NOTE | ~2024-01-03 | MM_ITS ---
EXAMINATION: MM SCREENING DIGITAL BREAST TOMOSYNTHESIS, BILATERAL CLINICAL INFORMATION: Screening. Asymptomatic. COMPARISON: Mammography: Comparison is made with available priors TECHNIQUE: Digital breast mammography with tomosynthesis is performed in both the craniocaudal and mediolateral oblique views along with computer-aided detection (CAD). FINDINGS: The breasts are heterogeneously dense, which may obscure small masses (ACR BI-RADS breast composition Category c). There are no significant masses, abnormal calcifications, or other abnormalities. MM/MM tomosynthesis screening BI IMPRESSION: No mammographic evidence of malignancy. ASSESSMENT: BI-RADS BI-RADS 1 - Negative RECOMMENDATION: Routine annual mammography screening. 1 year F/U This examination should not preclude the clinical evaluation of a suspicious palpable abnormality. This patient's information was entered into a reminder system with a target due date for their next mammogram. Electronically signed by: Didi Yao DO 01/16/2024 03:17 PM EDT
== END 2024-01-03 07:45 | disposition home or self-care (01) ==
LOC: HO.MAMMO 07:44
PROVIDERS: PCP Nurse Practitioner Family; Visit Provider Internal Medicine
DX: Z12.31 Encounter for screening mammogram for malignant neoplasm of breast (principal)
CPT/HCPCS: 77063; 77067

== ENCOUNTER → 2024-01-03 07:45 | Outpatient (BNV) | payer MEDICARE, BC, SELFPAY | PROVIDERS: PCP Nurse Practitioner Family; Visit Provider Internal Medicine | DX: Z12.31 Encounter for screening mammogram for malignant neoplasm of breast (principal) | CPT/HCPCS: 77063; 77067 ==

== ENCOUNTER 2024-01-31 08:18 | Outpatient (AMB) | payer MEDICARE, BC, SELFPAY ==
[2024-01-31 08:25] VITALS: BP 142/82; PULSE 83; O2SAT 96; BMI 40.8
--- NOTE | 2024-01-31 08:25 | A.OFFPC_ITS ---
Vital Signs 01/31/24 08:25 Height 5 ft 1 in Weight 216 lb BMI 40.8 BP 142/82 H Blood Pressure Location Rt brachial Position Sitting Pulse 83 Pulse Source Pulse Oximeter Pulse Oximetry (%) 96 Oxygen Delivery Method Room Air Intake Visit Reasons: Transfer from [facility]/ Intake Note: pt is here to est care, transferred from Dr. Gloria. Patient is diabetic. A1c done in office today. Pricing Associate Required: No Accompanied by: Self / Same As Patient Allergies amoxicillin [AMOXICILLIN] Allergy (Intermediate, Verified 01/31/24 08:27) RASH Penicillins [PENICILLINS] Allergy (Intermediate, Verified 01/31/24 08:27) RASH cephaloglycin [CEPHALOGLYCIN] Allergy (Mild, Verified 01/31/24 08:27) RASH ciprofloxacin [From CIPRO] Allergy (Mild, Verified 01/31/24 08:27) RASH penicillin V Allergy (Unknown, Verified 01/31/24 08:27) Unknown Amoxicillin Allergy (Unknown, Uncoded 09/14/23 13:58) Rash Cephadyn Allergy (Unknown, Uncoded 09/14/23 13:58) rash Cipro Allergy (Unknown, Uncoded 09/14/23 13:58) Rash penicillin Allergy (Unknown, Uncoded 09/14/23 13:58) Rash Medication List - Last Reconciled 01/31/24 by CAROLEE Hussein-CORBIN acetaminophen (Tylenol) 650 mg (2 x 325 mg) PO Q4H PRN atorvastatin 40 mg PO DAILY blood sugar diagnostic (OneTouch Ultra Test strips) As directed 3x/day levothyroxine 88 mcg PO DAILY 90 days olmesartan 5 mg PO DAILY 90 days pen needle, diabetic As directed pioglitazone 30 mg PO DAILY semaglutide 2 mg (0.75 mL) subcut QWEEK 90 days Tobacco use date assessed: 08/31/23 Fall risk assessment: No Falls in past year Last assessed Fall Risk: 01/31/24 Dental Screening Dental Screen Date: 08/31/23 HPI Transfer from [facility]/ HPI Details New pt is here to establish care. Pt is a diabetic, on an ARB and a statin. A1C in office today is 6.3. Microalbumin is up to date. Denies polyuria, polydipsia, and neuropathy. Pt denies any signs and symptoms of hypoglycemia and does know how to correct it. Will increase semaglutide from 1mg to 2mg. Pt would rather not increase her blood pressure medication. She will continue to work on weight loss. [facility] Medical History Positive HOLLY (antinuclear antibody) Hypothyroidism Hyperlipidemia LDL goal <100 Elevated LFTs Obesity due to excess calories Hypertension Controlled type 2 diabetes mellitus without complication Surgical History H/O colonoscopy Hx of dilation and curettage History of right oophorectomy Family History Sister Diabetes type 2, controlled Brother Diabetes, type I Social History Household Members: None Housing: House Alcohol intake: current Alcohol intake frequency: holidays/special occasions only Patient Tobacco Use Status: Former Tobacco user Years Smoked: 20 years e-Cigarette/Vaping Use: Never Used Second Hand Smoke Exposure: No service: No Current occupational status: retired Cognitive needs: No Hearing needs: No Vision needs: Yes Questionnaire PHQ-9 Over the last 2 weeks, how often have you been bothered by any of the following problems? 1. Little interest or pleasure in doing things: not at all 2. Feeling down, depressed, or hopeless: not at all 3. Trouble falling or staying asleep, or sleeping too much: not at all 4. Feeling tired or having little energy: not at all 5. Poor appetite or overeating: not at all 6. Feeling bad about yourself - or that you are a failure or have let yourself or your family down: not at all 7. Trouble concentrating on things, such as reading the newspaper or watching television: not at all 8. Moving or speaking so slowly that other people could have noticed. Or the opposite - being so fidgety or restless that you have been moving around a lot more than usual: not at all 9. Thoughts that you would be better off or of hurting yourself in some way: not at all Total score: 0 Depression Screening Interpretation: Negative Depression Screening Done: Yes [id number] - PHQ-9 Billing: Yes Source: Developed by Drs. Roberto Carlos Hinkle, Sydney Cabezas, Elijah Nielsen and colleagues, with an educational sylvia from [employer]. Thrive Questionnaire Date Thrive assessed: 01/31/24 I am a: Patient What is your living situation today?: I have a steady place to live Within the past 12 months, did the food you bought not last and you didn't have the money to get more?: Never true Within the past 12 months, did you worry whether your food would run out before you got money to buy more?: Never true Do you have trouble paying for medicines?: No Do you have trouble getting transportation to medical appointments?: No Do you have trouble paying your heating and electricity bill?: No Do you have trouble taking care of your child, family member or friend?: No Do you have trouble with day-to-day activities such as bathing, preparing meals, shopping, managing finances, etc.?: No Are you currently unemployed and looking for a job?: No Are you interested in more education?: No Please select the resources that you would like help with: None Currently or been in a relationship where the following occur: No concerns reported THRIVE Score: 0 AUDIT C Alcohol Use Questionnaire (AUDIT-C) 1. How often do you have a drink containing alcohol?: Monthly or less 2. How many drinks containing alcohol do you have on a typical day when you are drinking?: 1 or 2 3. How often do you have six or more drinks on one occasion?: Never Total Score: 1 Score Reviewed/Action Taken: Yes GERRI-7 AMB Questionnaire GERRI-7 Date GERRI - 7 assessed: 01/31/24 Feeling nervous, anxious, or on edge: 0 = Not at all Not being able to stop or control worryin = Not at all Worrying too much about different things: 0 = Not at all Trouble relaxin = Not at all Being so restless that it is hard to sit still: 0 = Not at all Becoming easily annoyed or irritable: 0 = Not at all Feeling afraid as if something awful might happen: 0 = Not at all Total GERRI-7 score (0-4 normal; 5-9 mild; 10-14 moderate; 15-21 severe): 0 Source: Developed by Drs. Roberto Carlos Hinkle, Sydney Cabezas, Elijah Nilesen and colleagues, with an educational sylvia from [employer]. GERRI-7 Assessment Billing GERRI-7 Assessment Tool: GERRI-7 Assessment 63772 Review of Systems Const Reports as per HPI Physical exam (Primary Care) Vital Signs: Last Vital Signs Pulse 83 01/31/24 08:25 BP 142/82 H 01/31/24 08:25 Pulse Ox 96 01/31/24 08:25 Oxygen Delivery Method Room Air 01/31/24 08:25 BMI result Body Mass Index 40.8 Tobacco/Smoking Status: Tobacco use Status Tobacco use date assessed 08/31/23 01/31/24 08:26 Patient Tobacco Use Status Former Tobacco user 01/31/24 08:26 e-Cigarette/Vaping Use Never Used 01/31/24 08:26 PHQ-9: PHQ-9 Score PHQ-9: Total score 0 01/31/24 08:36 Depression Screening Interpretation: Negative Thrive Assessment: Date of Thrive Assessment Date Thrive assessed 01/31/24 01/31/24 08:28 Currently or been in a relationship where the following occur: No concerns reported Const General: cooperative Nutritional Appearance: obese Orientation/consciousness: patient oriented x3 Resp Effort & Inspection: normal respiratory effort Auscultation: clear to auscultation bilaterally Cardio Rate: regular rate Rhythm: regular rhythm Heart sounds: S1 normal heart sound present and S2 normal heart sound present Neuro General: patient oriented x3 Extrem Other: bilat feet: + sensation with use of monofilament, feet intact Psych Appearance: grossly normal Mental Status: mental status grossly normal Speech and movement: Normal speech and movement present Affect: normal affect Attitude: cooperative Thought process: Normal thought process present Thought content: Normal thought content present Insight: Good insight present (Psych) Judgement: Good judgement present (Psych) Results AMB Hemoglobin A1c AMB Hemoglobin A1c 6.3 % Last Edit by Alexis Quiles CMA on 01/31/24 08: 50 Results Reviewed Results Reviewed: Laboratory Last Values Hgb A1c (Clinic) 6.3 % (4.0-6.0) H 01/31/24 08:50 Coding Level of Care Code New Pt Level 3 (14196) Diagnoses Controlled type 2 diabetes mellitus without complication, without long-term current use of insulin E11.9 Diabetes mellitus fdc insulin use: without director long term care use Osteopenia M85.80 Additional Codes GERRI-7 Assessment Billing - GERRI-7 Assessment Tool: GERRI-7 Assessment [id number] ([id number]) Assessment & Plan Assessment & Plan (1) Controlled type 2 diabetes mellitus without complication: Code(s): E11.9 - Type 2 diabetes mellitus without complications Category: Medical Qualifiers: Diabetes mellitus director long term care insulin use: without fdc use Qualified Code(s): E11.9 - Type 2 diabetes mellitus without complications Plan: Labs ordered, increasing semaglutide from 1mg to 2mg (2) Osteopenia: Code(s): M85.80 - Other specified disorders of bone density and structure, unspecified site Category: Medical Plan: Bone density ordered Plan The patient agreed to the use of a medical education coordinator for this encounter. Scribed for WENDY Betancourt by Merle Tran medical education coordinator, on 01/31/2024 at 09:05 EST. Orders: Orders AMB Hemoglobin A1c Today Z13.9 - Encounter for screening, unspecified Comprehensive [place]. Panel Fast Today E11.9 - Type 2 diabetes mellitus without complications UA CC w/rflx Micro + Cult Today E11.9 - Type 2 diabetes mellitus without complications Complete Blood Count Auto Diff Today E11.9 - Type 2 diabetes mellitus without complications TSH reflex Free T4 Today E11.9 - Type 2 diabetes mellitus without complications Lipid Panel Today E11.9 - Type 2 diabetes mellitus without complications XR DEXA axial skeleton Today M85.80 - Other specified disorders of bone density and structure, unspecified site Medications: Changed From semaglutide Administer 1mg weekly 1 mg (0.75 mL) subcut QWEEK 90 days 9.75 mL 0RF E11.9 - Type 2 diabetes mellitus without complications To semaglutide Administer 1mg weekly 2 mg (0.75 mL) subcut QWEEK 90 days 9.75 mL 2RF E11.9 - Type 2 diabetes mellitus without complications
== END 2024-01-31 09:42 | disposition home or self-care (01) ==
PROVIDERS: PCP Nurse Practitioner Family; Visit Provider Nurse Practitioner Family
DX: E11.9 Type 2 diabetes mellitus without complications (principal); M85.80 Other specified disorders of bone density and structure, unspecified site; Z23 Encounter for immunization; Z13.9 Encounter for screening, unspecified

== ENCOUNTER → 2024-01-31 08:18 | Outpatient (BNVA) | payer MEDICARE, BC, SELFPAY | PROVIDERS: PCP Nurse Practitioner Family; Visit Provider Nurse Practitioner Family | DX: Z23 Encounter for immunization (principal); E11.9 Type 2 diabetes mellitus without complications; M85.80 Other specified disorders of bone density and structure, unspecified site | CPT/HCPCS: 36415; 80053; 80061; 83036; 84439; 84443; 85025; 90471; 90715; 96127; 99202 ==

== ENCOUNTER 2024-01-31 09:42 | Outpatient (REF) | payer MEDICARE, BC, SELFPAY ==
[2024-01-31 13:19] LABS: MANUAL DIFF FLAG NO
[2024-01-31 13:36] LABS: Basophils Absolute Auto 0.1 X10*3/uL (0.0-0.2); Basophils Percent Auto 0.7 % (0-2); Eosinophils Absolute Auto 0.2 X10*3/uL (0.0-0.4); Eosinophils Percent Auto 2.3 % (0-4); Hematocrit 47.5 % (37.0-47.0); Hemoglobin 15.2 g/dl (12.0-16.0); Imm Gran Abs Auto 0.02 X10*3/uL (0.00-0.03); Imm Gran Pct Auto 0.3 % (0.0-0.4); Lymphocytes Absolute Auto 1.4 X10*3/uL (1.2-4.9); Lymphocytes Percent Auto 19.9 % (20-40); Mean Corpuscular Hemoglobin 31.4 pg (27.0-33.0); Mean Corpuscular Volume 98.1 fL (80.0-98.0); Mean Platelet Volume 9.9 fL (9.4-12.3); Monocytes Absolute Auto 0.5 X10*3/uL (0.1-1.2); Monocytes Percent Auto 7.4 % (2-11); Neutrophils Absolute Auto 4.9 x10*3/uL (2.0-8.3); Neutrophils Percent Auto 69.4 % (45-73); Platelet Count 225 X10*3/uL (160-400); Red Blood Count 4.84 X10*6/uL (4.20-5.50)
[2024-01-31 14:24] LABS: Alanine Aminotransferase 36 U/L (0-31); Albumin Level 4.1 g/dL (3.5-5.0); Alkaline Phosphatase 79 U/L (39-117); Anion Gap 15 (12-20); Aspartate Amino Transferase 29 U/L (5-31); Bilirubin Total 0.7 mg/dL (0.0-1.0); Blood Urea Nitrogen 16 mg/dL (9-16); Carbon Dioxide 24 mmol/L (22-29); Chloride 111 mmol/L (96-108); Cholesterol 158 mg/dL (<200); Estimated Glomerular Filt Rate > 60; Glucose Fasting 116 mg/dL (60-99); HDL Cholesterol 55 mg/dL (>40); LDL Cholesterol Calculated 83 mg/dL (<100); Potassium 4.5 mmol/L (3.3-5.1); Sodium 145 mmol/L (135-145); TSH reflex Free T4 0.28 uIU/mL (0.32-4.0); Total Protein 7.4 g/dL (6.5-8.0); Triglycerides 104 mg/dL (<150)
[2024-01-31 15:03] LABS: Free T4 (Free Thyroxine) 1.07 ng/dL (0.71-1.85)
== END 2024-01-31 09:43 | disposition home or self-care (01) ==
LOC: HO.HMGCLDS 09:42
PROVIDERS: PCP Nurse Practitioner Family; Visit Provider Nurse Practitioner Family
DX: Z13.89 Encounter for screening for other disorder (principal)
CPT/HCPCS: 36415; 80053; 80061; 84439; 84443; 85025

== ENCOUNTER 2024-02-06 11:38 | Outpatient (REF) | payer MEDICARE, BC, SELFPAY ==
[2024-02-07 13:39] LABS: Appearance Urine Cloudy; Color Urine Yellow; Glucose Urine UA Negative (Negative); Leukocyte Esterase Urine Moderate (2+) (Negative); Nitrite Urine Negative (Negative); UMIC TRIGGER UACC YES; Urine Blood Negative (Negative); Urine Ketones Negative (Negative); Urine Protein Negative (Neg-Trace)
[2024-02-07 13:52] LABS: Bacteria Urine None Seen (None Seen); Calcium Oxalate Crystals Urine Present; Hyaline Casts Urine 0-2 /LPF (0-2); RBC Urine 0-2 /HPF (0-2); UACC Culture Trigger YES; WBC Urine 21-50 /HPF (0-5)
== END 2024-02-06 11:39 | disposition home or self-care (01) ==
LOC: HO.HMGCLNP 11:38
PROVIDERS: PCP Nurse Practitioner Family; Visit Provider Nurse Practitioner Family
DX: E11.9 Type 2 diabetes mellitus without complications (principal)
CPT/HCPCS: 81001; 87086

== ENCOUNTER 2024-02-21 07:49 | Outpatient (REF) | payer MEDICARE, BC, SELFPAY ==
--- NOTE | ~2024-02-21 | MM_ITS ---
EXAMINATION: BONE DENSITOMETRY CLINICAL INDICATION: Osteopenia. COMPARISON: Baseline BD dated 08/19/2020. TECHNIQUE: Using a [employer] DXA System (software version: 13.1) manufactured by [employer], dual-energy x-ray absorptiometry was performed of the lumbar spine and left hip. The images are of good technical quality. Summary results are attached. FINDINGS: LEFT FEMUR, NECK: Current: BMD 0.810 g/cm2, Z-score -0.4, T-score -1.6, osteopenia. Baseline: BMD 0.857 g/cm2. LEFT FEMUR, TOTAL: Current: BMD 0.982 g/cm2, Z-score 0.8, T-score -0.2, normal, 8.4% decrease from baseline (<5% change is not significant). Baseline: BMD 1.072 g/cm2. AP SPINE L1-L4: Current: BMD 1.147 g/cm2, Z-score 0.5, T-score -0.3, normal, 8.3% decrease from baseline (<5% change is not significant). Baseline: BMD 1.251 g/cm2. IDENTIFIED RISK FACTORS: Menopause, right oophorectomy. HISTORY OF FRACTURE: None listed. MEDICATIONS: None listed. MM/XR DEXA axial skeleton IMPRESSION: 1. DIAGNOSIS: Osteopenia based on the lowest T-score value of -1.6 in the femoral neck applying World Health Organization criteria. 2. 10-YEAR FRACTURE RISK PREDICTION, FRAX: Major osteoporotic fracture (clinical spine, forearm, hip or shoulder) 10.1%. Hip fracture 1.9%. 3. Treatment Recommendations: NOF guidelines recommend consideration for treatment in postmenopausal women and men age 50 and older presenting with the following: -A hip or vertebral (clinical or morphometric) fracture. -T-score less than or equal to -2.5 at the femoral neck or spine after appropriate evaluation to exclude secondary causes. -Low bone mass at the hip or spine and a 10-year fracture probability by FRAX of greater than or equal to 3% for hip fracture or greater than or equal to 20% for major osteoporotic fracture based on the [place] adapted WHO algorithm. 4. Other Recommendations: All treatment decisions require clinical judgment and consideration of individual patient factors, including patient preferences, comorbidities, previous drug use, risk factors not captured in the FRAX model (e.g. frailty, falls, vitamin D deficiency, increased bone turnover, interval significant decline in bone density) and possible under or overestimation of fracture risk by FRAX. Additional medical evaluation for secondary cause of low bone mineral density may be appropriate. FUTURE SCAN RECOMMENDATION: People with diagnosed cases of osteoporosis or at high risk for fracture should have regular bone mineral density tests. For patients eligible for Medicare, routine testing is allowed once every 2 years. The testing frequency can be increased to one year for patients who have rapidly progressing disease, those who are receiving or discontinuing medical therapy to restore bone mass, or have additional risk factors. Electronically signed by: Lynsey Dorman MD 02/21/2024 10:35 AM MESHA ZEPEDA
== END 2024-02-21 07:50 | disposition home or self-care (01) ==
LOC: HO.MAMMO 07:49
PROVIDERS: PCP Nurse Practitioner Family; Visit Provider Nurse Practitioner Family
DX: Z13.820 Encounter for screening for osteoporosis (principal); M85.80 Other specified disorders of bone density and structure, unspecified site; Z78.0 Asymptomatic menopausal state
CPT/HCPCS: 77080

== ENCOUNTER 2024-04-09 08:52 | Outpatient (REF) | payer MEDICARE, BC, SELFPAY ==
[2024-04-09 10:47] LABS: MANUAL DIFF FLAG NO
[2024-04-09 10:52] LABS: Basophils Absolute Auto 0.1 X10*3/uL (0.0-0.2); Eosinophils Absolute Auto 0.2 X10*3/uL (0.0-0.4); Eosinophils Percent Auto 3.4 % (0-4); Hematocrit 46.1 % (37.0-47.0); Hemoglobin 15.4 g/dl (12.0-16.0); Imm Gran Abs Auto 0.03 X10*3/uL (0.00-0.03); Imm Gran Pct Auto 0.4 % (0.0-0.4); Lymphocytes Absolute Auto 1.5 X10*3/uL (1.2-4.9); Lymphocytes Percent Auto 21.5 % (20-40); Mean Corpuscular HGB Conc 33.4 g/dl (31.0-35.0); Mean Corpuscular Hemoglobin 31.7 pg (27.0-33.0); Mean Corpuscular Volume 94.9 fL (80.0-98.0); Mean Platelet Volume 9.4 fL (9.4-12.3); Monocytes Absolute Auto 0.5 X10*3/uL (0.1-1.2); Monocytes Percent Auto 7.1 % (2-11); Neutrophils Absolute Auto 4.5 x10*3/uL (2.0-8.3); Neutrophils Percent Auto 66.6 % (45-73); Platelet Count 220 X10*3/uL (160-400); Red Blood Count 4.86 X10*6/uL (4.20-5.50); Red Cell Distribution Width 14.6 % (11.0-16.0); White Blood Count 6.7 X10*3/uL (4.8-10.8)
[2024-04-09 12:21] LABS: Alanine Aminotransferase 41 U/L (0-31); Albumin Level 3.7 g/dL (3.5-5.0); Alkaline Phosphatase 76 U/L (39-117); Anion Gap 12 (12-20); Aspartate Amino Transferase 36 U/L (5-31); Bilirubin Total 1.1 mg/dL (0.0-1.0); Blood Urea Nitrogen 14 mg/dL (9-16); Calcium 8.9 mg/dL (8.4-10.2); Carbon Dioxide 25 mmol/L (22-29); Chloride 109 mmol/L (96-108); Estimated Glomerular Filt Rate > 60; Glucose Random 138 mg/dL (60-115); Potassium 3.8 mmol/L (3.3-5.1); Sodium 142 mmol/L (135-145); Total Protein 6.8 g/dL (6.5-8.0)
[2024-04-09 12:27] LABS: TSH reflex Free T4 5.38 uIU/mL (0.32-4.0)
[2024-04-09 15:32] LABS: Free T4 (Free Thyroxine) 1.11 ng/dL (0.71-1.85)
[2024-04-09 16:14] LABS: Appearance Urine Clear; Color Urine Yellow; Glucose Urine UA Negative (Negative); Leukocyte Esterase Urine Small (1+) (Negative); Nitrite Urine Negative (Negative); PH 5.5 (5.0-9.0); UMIC TRIGGER UACC YES; Urine Blood Negative (Negative); Urine Ketones Negative (Negative); Urine Protein Negative (Neg-Trace)
[2024-04-09 16:16] LABS: Bacteria Urine None Seen (None Seen); Hyaline Casts Urine 0-2 /LPF (0-2); RBC Urine 0-2 /HPF (0-2); Squamous Epithelial Cell Urine 0-2 /HPF (0-2); UACC Culture Trigger YES
== END 2024-04-09 08:53 | disposition home or self-care (01) ==
LOC: HO.HMGCLDS 08:52
PROVIDERS: PCP Nurse Practitioner Family; Visit Provider Nurse Practitioner Family
DX: E03.9 Hypothyroidism, unspecified (principal)
CPT/HCPCS: 36415; 80053; 81001; 84439; 84443; 85025; 87086

== ENCOUNTER 2024-09-06 10:41 | Outpatient (REF) | payer MEDICARE, BC, SELFPAY ==
[2024-09-06 13:04] LABS: MANUAL DIFF FLAG NO
[2024-09-06 13:08] LABS: Basophils Absolute Auto 0.1 X10*3/uL (0.0-0.2); Basophils Percent Auto 0.9 % (0-2); Eosinophils Absolute Auto 0.2 X10*3/uL (0.0-0.4); Eosinophils Percent Auto 3.1 % (0-4); Hematocrit 44.1 % (37.0-47.0); Hemoglobin 14.6 g/dl (12.0-16.0); Imm Gran Abs Auto 0.03 X10*3/uL (0.00-0.03); Imm Gran Pct Auto 0.5 % (0.0-0.4); Lymphocytes Absolute Auto 1.6 X10*3/uL (1.2-4.9); Lymphocytes Percent Auto 24.2 % (20-40); Mean Corpuscular HGB Conc 33.1 g/dl (31.0-35.0); Mean Corpuscular Hemoglobin 31.3 pg (27.0-33.0); Mean Corpuscular Volume 94.4 fL (80.0-98.0); Mean Platelet Volume 9.3 fL (9.4-12.3); Monocytes Absolute Auto 0.4 X10*3/uL (0.1-1.2); Monocytes Percent Auto 6.7 % (2-11); Neutrophils Absolute Auto 4.2 x10*3/uL (2.0-8.3); Neutrophils Percent Auto 64.6 % (45-73); Platelet Count 218 X10*3/uL (160-400); Red Blood Count 4.67 X10*6/uL (4.20-5.50); Red Cell Distribution Width 14.4 % (11.0-16.0); White Blood Count 6.4 X10*3/uL (4.8-10.8)
[2024-09-06 13:21] LABS: Appearance Urine Turbid; Color Urine Yellow; Glucose Urine UA Negative (Negative); Leukocyte Esterase Urine Moderate (2+) (Negative); Nitrite Urine Negative (Negative); UMIC TRIGGER UACC YES; Urine Blood Negative (Negative); Urine Ketones Trace mg/dL (Negative); Urine Protein Negative (Neg-Trace)
[2024-09-06 13:23] LABS: Bacteria Urine None Seen (None Seen); Hyaline Casts Urine 0-2 /LPF (0-2); RBC Urine 0-2 /HPF (0-2); UACC Culture Trigger YES; WBC Urine >50 /HPF (0-5)
[2024-09-06 13:37] LABS: Alanine Aminotransferase 26 U/L (0-31); Albumin Level 3.9 g/dL (3.5-5.0); Alkaline Phosphatase 75 U/L (39-117); Anion Gap 11 (12-20); Aspartate Amino Transferase 27 U/L (5-31); Bilirubin Total 1.1 mg/dL (0.0-1.0); Blood Urea Nitrogen 13 mg/dL (9-16); Calcium 9.4 mg/dL (8.4-10.2); Carbon Dioxide 24 mmol/L (22-29); Chloride 110 mmol/L (96-108); Cholesterol 138 mg/dL (<200); Estimated Glomerular Filt Rate > 60; Glucose Fasting 128 mg/dL (60-99); HDL Cholesterol 52 mg/dL (>40); LDL Cholesterol Calculated 61 mg/dL (<100); Potassium 4.3 mmol/L (3.3-5.1); Sodium 141 mmol/L (135-145); Total Protein 6.7 g/dL (6.5-8.0); Triglycerides 128 mg/dL (<150)
[2024-09-06 13:44] LABS: TSH reflex Free T4 0.67 uIU/mL (0.32-4.0); Vitamin D 25-OH Total 16.6 ng/mL (>30)
[2024-09-06 13:57] LABS: Creatinine Urine 174.47 mg/dL; Microalbum/Creatinine Ratio Ur 10.3 ug/mg cr (<30)
== END 2024-09-06 10:42 | disposition home or self-care (01) ==
LOC: HO.HMGCLDS 10:41
PROVIDERS: PCP Nurse Practitioner Family; Visit Provider Nurse Practitioner Family
DX: E11.9 Type 2 diabetes mellitus without complications (principal); Z23 Encounter for immunization; E55.9 Vitamin D deficiency, unspecified
CPT/HCPCS: 36415; 80053; 80061; 81001; 82043; 82306; 82570; 83036; 84443; 85025; 87086; 90471; 90677; 96127; 99212

== ENCOUNTER 2024-09-06 10:41 | Outpatient (AMB) | payer MEDICARE, BC, SELFPAY ==
[2024-09-06 10:45] VITALS: BP 136/80; PULSE 86; O2SAT 97; BMI 39.3
--- NOTE | 2024-09-06 10:45 | MHC.PC.OV ---
Vital Signs 09/06/24 10:45 Height 5 ft 1 in Weight 208 lb BMI 39.3 BP 136/80 Blood Pressure Location Rt brachial Position Sitting Pulse 86 Pulse Source Pulse Oximeter Pulse Oximetry (%) 97 Intake Visit Reasons: Annual visit Physical Security Manager Required: No Accompanied by: Self / Same As Patient Allergies amoxicillin [AMOXICILLIN] Allergy (Intermediate, Verified 09/06/24 11:36) RASH Penicillins [PENICILLINS] Allergy (Intermediate, Verified 09/06/24 11:36) RASH cephaloglycin [CEPHALOGLYCIN] Allergy (Mild, Verified 09/06/24 11:36) RASH ciprofloxacin [From CIPRO] Allergy (Mild, Verified 09/06/24 11:36) RASH penicillin V Allergy (Unknown, Verified 09/06/24 11:36) Unknown Amoxicillin Allergy (Unknown, Uncoded 09/06/24 11:36) Rash Cephadyn Allergy (Unknown, Uncoded 09/06/24 11:36) rash Cipro Allergy (Unknown, Uncoded 09/06/24 11:36) Rash penicillin Allergy (Unknown, Uncoded 09/06/24 11:36) Rash Medication List - Last Reconciled 09/06/24 by CAROLEE Hussein- acetaminophen (Tylenol) 650 mg (2 x 325 mg) PO Q4H PRN atorvastatin 40 mg PO DAILY blood sugar diagnostic (OneTouch Ultra Test strips) As directed 3x/day levothyroxine 100 mcg PO DAILY 90 days meclizine 12.5 mg PO TID PRN 10 days olmesartan 5 mg PO DAILY 90 days pen needle, diabetic As directed pioglitazone 30 mg PO DAILY semaglutide 2 mg (0.75 mL) subcut QWEEK 90 days Tobacco use date assessed: 09/06/24 Fall risk assessment: No Falls in past year Last assessed Fall Risk: 09/06/24 Dental Screening Dental Screen Date: 09/06/24 Did you have a dental visit in the last 12 months?: Yes Did you have a dental problem in the last 6 months where you did not have access to dental care?: No Was dental information given to patient?: Patient has dentist HPI Annual visit HPI Details History of Present Illness The patient is a 74-year-old female presenting with diabetes management. Her hemoglobin A1c level is 5.6, indicating well-controlled diabetes mellitus. She is currently on a GLP-1 agonist therapy and reports a satisfactory state of health with minor weight reduction. Noteworthy is her absence of chest discomfort, respiratory distress, abdominal pain, gastrointestinal bleeding, mood disturbances, or any other adverse symptoms. She is pleased with the current state of her management of diabetes, with no significant complications or exacerbations noted. Health Maintenance - Eye and mammogram screenings are reported to be up to date. - Assessment of the colon cancer screening status is ongoing. -bone density up to date Social History Review of Systems - Cardiovascular: Denies chest pain or shortness of breath. - Gastrointestinal: Denies abdominal pain, constipation, diarrhea, or blood in stool. - Psychiatric: Denies suicidal ideation or homicidal ideation. - Neurological: Reports intact sensation bilaterally. Physical Exam General: Cooperative, healthy appearing, comfortable, no acute distress and well developed, morbidly obese Orientation: Patient oriented x3 Limitations: No limitations Head: Normal to inspection Ears: Hearing grossly normal bilaterally Nose: Normal external nose present Face and sinus: Normal facial exam Eyes: Appearance normal, both eyes and all related structures Neck: Normal visual inspection and Yes full ROM Respiratory: Normal respiratory effort and able to speak in complete sentences. Clear to auscultation bilaterally Cardiovascular: Regular rate and rhythm. Normal S1 and S2, faint systolic murmur GI: Normal to inspection. Soft to palpation and nontender Skin: No rashes or lesions noted Neuro: Patient oriented x3 Extremities: Normal to inspection, positive sensation with use of monofilament bilaterally Results - Labs: Hemoglobin A1c level at 5.6%. Plan 1. 6%. We will continue to monitor her glycemic control with regular check-ups and A1c testing. Her colon screening status is still to be determined. Given the stability and well-controlled nature of her condition, no immediate modifications to her treatment plan are required.: Discussion Notes I discussed with the patient the current status of her diabetes management, emphasizing the significance of her hemoglobin A1c level at 5.6% as an indicator of effective control. We reviewed the importance of her ongoing treatment with a GLP-1 agonist and its positive impact on both glucose levels and weight maintenance. We agreed on the necessity to continue monitoring her condition through regular follow-ups and glucose testing. The patient showed understanding and satisfaction with her current management. I also reassured her about the ongoing process to verify her colon cancer screening status, reiterating that maintaining updated health screenings is an essential aspect of comprehensive care. Patient Instructions - Continue taking your GLP-1 agonist as prescribed. - Keep monitoring your blood sugar levels regularly. - Stay informed about when your colon screening was last performed, and inform us as soon as possible. - Report any new symptoms or concerns immediately. - Follow up as scheduled to continue monitoring your diabetes management. [facility] Medical History Positive HOLLY (antinuclear antibody) Hypothyroidism Hyperlipidemia LDL goal <100 Elevated LFTs Obesity due to excess calories Hypertension Controlled type 2 diabetes mellitus without complication Surgical History H/O colonoscopy Hx of dilation and curettage History of right oophorectomy Family History Sister Diabetes type 2, controlled Brother Diabetes, type I Social History Household Members: None Housing: House Alcohol intake: current Alcohol intake frequency: holidays/special occasions only Patient Tobacco Use Status: Former Tobacco user Years Smoked: 20 years e-Cigarette/Vaping Use: Never Used Second Hand Smoke Exposure: No service: No Current occupational status: retired Cognitive needs: No Hearing needs: No Vision needs: Yes Questionnaire PHQ-9 Over the last 2 weeks, how often have you been bothered by any of the following problems? 1. Little interest or pleasure in doing things: not at all 2. Feeling down, depressed, or hopeless: not at all 3. Trouble falling or staying asleep, or sleeping too much: not at all 4. Feeling tired or having little energy: not at all 5. Poor appetite or overeating: not at all 6. Feeling bad about yourself - or that you are a failure or have let yourself or your family down: not at all 7. Trouble concentrating on things, such as reading the newspaper or watching television: not at all 8. Moving or speaking so slowly that other people could have noticed. Or the opposite - being so fidgety or restless that you have been moving around a lot more than usual: not at all 9. Thoughts that you would be better off or of hurting yourself in some way: not at all Total score: 0 Depression Screening Interpretation: Negative Depression Screening Done: Yes 96711 - PHQ-9 Billing: Yes Source: Developed by Drs. Roberto Carlos Hinkle, Sydney Cabezas, Elijah Nielsen and colleagues, with an educational sylvia from [employer]. Thrive Questionnaire Date Thrive assessed: 09/06/24 I am a: Patient What is your living situation today?: I have a steady place to live Within the past 12 months, did the food you bought not last and you didn't have the money to get more?: Never true Within the past 12 months, did you worry whether your food would run out before you got money to buy more?: Never true Do you have trouble paying for medicines?: No Do you have trouble getting transportation to medical appointments?: No Do you have trouble paying your heating and electricity bill?: No Do you have trouble taking care of your child, family member or friend?: No Do you have trouble with day-to-day activities such as bathing, preparing meals, shopping, managing finances, etc.?: No Are you currently unemployed and looking for a job?: No Are you interested in more education?: No Please select the resources that you would like help with: None Currently or been in a relationship where the following occur: No concerns reported THRIVE Score: 0 AUDIT C Alcohol Use Questionnaire (AUDIT-C) 1. How often do you have a drink containing alcohol?: Monthly or less 2. How many drinks containing alcohol do you have on a typical day when you are drinking?: 1 or 2 3. How often do you have six or more drinks on one occasion?: Never Total Score: 1 Score Reviewed/Action Taken: Yes GERRI-7 AMB Questionnaire GERRI-7 Date GERRI - 7 assessed: 09/06/24 Feeling nervous, anxious, or on edge: 0 = Not at all Not being able to stop or control worryin = Not at all Worrying too much about different things: 0 = Not at all Trouble relaxin = Not at all Being so restless that it is hard to sit still: 0 = Not at all Becoming easily annoyed or irritable: 0 = Not at all Feeling afraid as if something awful might happen: 0 = Not at all Total GERRI-7 score (0-4 normal; 5-9 mild; 10-14 moderate; 15-21 severe): 0 Source: Developed by Drs. Roberto Carlos Hinkle, Sydney Cabezas, Elijah Nielsen and colleagues, with an educational sylvia from [employer]. GERRI-7 Assessment Billing GERRI-7 Assessment Tool: GERRI-7 Assessment 33985 Physical exam (Primary Care) Vital Signs: Last Vital Signs Pulse 86 09/06/24 10:45 BP 136/80 09/06/24 10:45 Pulse Ox 97 09/06/24 10:45 BMI result Body Mass Index 39.3 Tobacco/Smoking Status: Tobacco use Status Tobacco use date assessed 09/06/24 09/06/24 10:48 Patient Tobacco Use Status Former Tobacco user 09/06/24 10:48 e-Cigarette/Vaping Use Never Used 09/06/24 10:48 PHQ-9: PHQ-9 Score PHQ-9: Total score 0 09/06/24 11:17 Depression Screening Interpretation: Negative Thrive Assessment: Date of Thrive Assessment Date Thrive assessed 09/06/24 09/06/24 10:48 Currently or been in a relationship where the following occur: No concerns reported Coding Level of Care Code Est Pt Level 3 (00456) Diagnoses Controlled type 2 diabetes mellitus without complication, without long-term current use of insulin E11.9 Diabetes mellitus group home insulin use: without dedicated intermodal truck driver use Vitamin D deficiency E55.9 Additional Codes GERRI-7 Assessment Billing - GERRI-7 Assessment Tool: GERRI-7 Assessment 35662 ([id number]) PHQ-9 - 11551 - PHQ-9 Billing: Yes ([id number]) Assessment & Plan Assessment & Plan (1) Controlled type 2 diabetes mellitus without complication: Code(s): E11.9 - Type 2 diabetes mellitus without complications Category: Medical Qualifiers: Diabetes mellitus group home insulin use: without dedicated intermodal truck driver use Qualified Code(s): E11.9 - Type 2 diabetes mellitus without complications (2) Vitamin D deficiency: Code(s): E55.9 - Vitamin D deficiency, unspecified Category: Medical Plan . Orders: Orders Complete Blood Count Auto Diff Today E11.9 - Type 2 diabetes mellitus without complications Comprehensive [place]. Panel Fast Today E11.9 - Type 2 diabetes mellitus without complications TSH reflex Free T4 Today E11.9 - Type 2 diabetes mellitus without complications UA CC w/rflx Micro + Cult Today E11.9 - Type 2 diabetes mellitus without complications Lipid Panel Today E11.9 - Type 2 diabetes mellitus without complications Microalbumin, Random (w Creat) Today E11.9 - Type 2 diabetes mellitus without complications Vitamin D 25-OH Total Today E55.9 - Vitamin D deficiency, unspecified Medications: New meclizine 12.5 mg PO TID 10 days PRN 30 tabs 0RF dizziness
== END 2024-09-06 11:39 | disposition home or self-care (01) ==
LOC: HO.HMCC 10:42
PROVIDERS: PCP Nurse Practitioner Family; Visit Provider Nurse Practitioner Family
DX: E11.9 Type 2 diabetes mellitus without complications (principal); E55.9 Vitamin D deficiency, unspecified; Z23 Encounter for immunization; Z13.9 Encounter for screening, unspecified

== ENCOUNTER 2024-11-07 10:00 | Outpatient (AMB) | payer MEDICARE, BC, SELFPAY ==
--- NOTE | 2024-11-07 10:02 | A.OFFVIS_ITS ---
Vital Signs 11/07/24 10:03 Height 5 ft 1 in Weight 204 lb BMI 38.5 BP 144/60 H Blood Pressure Location Lt brachial Position Sitting Pulse 86 Pulse Oximetry (%) 98 Oxygen Delivery Method Room Air Intake Visit Reasons: pre cpolonoscopy/Fabiola pt Intake Note: Patient complex follow up for pre colonoscopy/Fabiola pt francoise 05/20/2022 for NAFLD (nonalcoholic fatty liver disease) Patient cc: Epic [facility]ow Specialist Required: No Accompanied by: Self / Same As Patient Allergies amoxicillin (AMOXICILLIN) Allergy (Intermediate, Verified 11/07/24 10:02) RASH Penicillins (PENICILLINS) Allergy (Intermediate, Verified 11/07/24 10:02) RASH cephaloglycin (CEPHALOGLYCIN) Allergy (Mild, Verified 11/07/24 10:02) RASH ciprofloxacin (From CIPRO) Allergy (Mild, Verified 11/07/24 10:02) RASH penicillin V Allergy (Unknown, Verified 11/07/24 10:02) Unknown Amoxicillin Allergy (Unknown, Uncoded 09/06/24 11:36) Rash Cephadyn Allergy (Unknown, Uncoded 09/06/24 11:36) rash Cipro Allergy (Unknown, Uncoded 09/06/24 11:36) Rash penicillin Allergy (Unknown, Uncoded 09/06/24 11:36) Rash Medication List - Last Reconciled 11/07/24 by Olga Weller CNP acetaminophen (Tylenol) 650 mg (2 x 325 mg) PO Q4H PRN atorvastatin 40 mg PO DAILY bisacodyl 5 mg PO ONCE 1 day blood sugar diagnostic (OneTouch Ultra Test strips) As directed 3x/day cholecalciferol (vitamin D3) 50 mcg PO DAILY 90 days levothyroxine 100 mcg PO DAILY meclizine 12.5 mg PO TID PRN 10 days olmesartan 5 mg PO DAILY 90 days pen needle, diabetic As directed pioglitazone 30 mg PO DAILY polyethylene glycol 3350 (Miralax) 238 grams PO ONCE semaglutide (Ozempic) 2 mg (0.75 mL) subcut QWEEK HPI HPI pre cpolonoscopy/Fabiola pt: Details: Patient is a 74-year-old eval PMH of obesity, hypothyroidism, HTN, HLD and well controlled DMII. Last visit with ARCHIE Ruff 05/20/2022 for NAFLD Tomasa presents for follow-up after prior imaging for a liver lesion, initially identified on X-ray, with subsequent MRIs and ultrasounds showing no abnormality. She expresses frustration with repeated recommendations for imaging despite negative findings. She has a diagnosis of fatty liver, confirmed as non- alcoholic in etiology after negative hepatitis and autoimmune workup. She reports well-controlled type 2 diabetes (A1C 5.6 in August), controlled choleste rol, and no alcohol use. She is concerned about the need for repeat colonoscopy versus stool-based screening, as her 2018 colonoscopy revealed two polyps. She notes that her bowel habits are generally regular, with occasional diarrhea related to dietary indiscretion and rare heartburn when eating late or irregularly. She denies constipation, abdominal pain, nausea, vomiting, blood in stool, or appetite changes. She reports intentional weight loss through increased protein intake and reduced carbohydrates. She has a history of hypertension, newly identified heart murmur at recent PCP visit, and experiences exertional fatigue but no other cardiac symptoms. Social hx: -denies ETOH use -denies recreational drug use -former smoker, cessation 40 years ago - family hx as below -denies personal hx of CA -tolerated anesthesia in the past without difficulty. [facility] Medical History (Updated 11/07/24 @ 11:11 by Olga Weller CNP) Fatigue Pre-operative cardiovascular examination Positive HOLLY (antinuclear antibody) Hypothyroidism Hyperlipidemia LDL goal <100 Elevated LFTs Obesity due to excess calories Hypertension Controlled type 2 diabetes mellitus without complication Surgical History H/O colonoscopy Hx of dilation and curettage History of right oophorectomy Family History Sister Diabetes type 2, controlled Brother Diabetes, type I Social History Household Members: None Housing: House Alcohol intake: current Alcohol intake frequency: holidays/special occasions only Patient Tobacco Use Status: Former Tobacco user Years Smoked: 20 years e-Cigarette/Vaping Use: Never Used Second Hand Smoke Exposure: No service: No Current occupational status: retired Cognitive needs: No Hearing needs: No Vision needs: Yes Review of Systems Const Reports as per HPI ENT Reports as per HPI Card Reports as per HPI Resp Reports as per HPI GI Reports as per HPI Reports as per HPI Physical Exam Vital Signs: Last Vital Signs Pulse 86 11/07/24 10:03 BP 144/60 H 11/07/24 10:03 Pulse Ox 98 11/07/24 10:03 Oxygen Delivery Method Room Air 11/07/24 10:03 BMI result Body Mass Index 38.5 Const General: healthy appearing, no acute distress and well developed Nutritional Appearance: average body habitus Orientation/consciousness: patient oriented x3 HEENT Head: Yes normal to inspection, Yes normocephalic and Yes atraumatic Face and sinus: Yes normal facial exam Eyes General: appearance normal, both eyes and all related structures Neck Neck: Yes normal visual inspection Resp Effort & Inspection: normal respiratory effort, able to speak in complete sentences, no tracheal deviation and symmetric chest movement Auscultation: clear to auscultation bilaterally Cardio Jugular venous distension: no JVD Rate: regular rate Rhythm: regular rhythm Heart sounds: S1 normal heart sound present, S2 normal heart sound present, no gallops and no murmurs GI Inspection: Yes normal to inspection, No distended and Yes obesity Palpation (GI): Soft to palpation, not firm, nontender and No hepatosplenomegaly present Auscultation: normoactive bowel sounds Neuro General: patient oriented x3 Gait exam (Neuro): Normal gait present Psych Appearance: grossly normal Mental Status: mental status grossly normal Speech and movement: Normal speech and movement present Affect: Anxious affect present Attitude: cooperative Thought process: Normal thought process present Thought content: Normal thought content present Insight: Good insight present (Psych) Judgement: Good judgement present (Psych) Results Reviewed Results Reviewed: DATE OF SERVICE: 09/28/18 Pre-Op dx:Colon cancer screening Post-Op dx: colon polyps, hemorrhoids (Diverticulosis) Procedure Description:Colonoscopy till cecum with polypectomy with a snare Surgeon(s): JOANNE REYES Procedure: The patient was placed in the left lateral decubitis position and pre-procedure medications were administered. After a digital rectal examination of the ano-rectum, the video colonoscope was inserted into the rectum and advanced through the colon to the cecum. The colonoscope was slowly withdrawn in a retrograde panoramic fashion and the colon mucosa was carefully examined including a retroflexed view of the rectum. Findings and interventions are described below. Procedure Difficulty: LLQ pressure applied to intubate the cecum Findings: Terminal Ileum ? Not evaluated Cecum ? Normal Ascending Colon ? An 8-9 mm sessile polyp removed with a cold snare. Transverse Colon - Moderate diverticulosis Descending Colon ? Moderate diverticulosis Sigmoid Colon ? A 7-8 mm sessile polyp removed with a cold snare and severe diverticulosis Rectum ? Normal Ano-rectum - Small internal hemorrhoids Colon preparation: Excellent Impression and Post Procedure Diagnosis: Colonoscopy Findings: Two polyps removed Moderate to severe diverticulosis seen in the transverse and left colon Small hemorrhoids on retroflexed exam. Plan: Await pathology results Patient has an appointment on 11/06/18 in the [facility] with Joanne Reyse M.D.- . Repeat Colonoscopy interval based on path results ? in 5 years if polyps are adenomatous and 10 years if polyps are hyperplastic. Above findings were reviewed with the patient and colon polyps and divert iculosis handouts were given in the discharge area Assessment & Plan Assessment & Plan (1) Screening for colon cancer: Comment: 09/28/2018 colonoscopy complete with excellent prep -ascending tubular adenoma, sigmoid hyperplastic polyp. Code(s): Z12.11 - Encounter for screening for malignant neoplasm of colon Category: Medical Plan: 2019 colonoscopy revealed one tubular adenoma (<10mm, ascending colon) and one hyperplastic polyp (sigmoid). Per guidelines, repeat colonoscopy is indicated 7 yrs post-polypectomy due to adenoma hx. Stool-based testing not recommended in this context. Cardiology Clearance: Newly discovered systolic murmur and exertional fatigue reported. Medications: -prescriptions for laxative tablets and PEG sent to pharmacy; instructions on clear liquid diet given. - understands diabetes medications and ASA will need to be held days prior to procedure. Nurse to review med holds per protocol. Patient educated on scheduling process, procedure preparation, including avoiding certain foods and ensuring clear liquid intake Advised on necessity for ride post-procedure due to sedation. (2) NAFLD (nonalcoholic fatty liver disease): Code(s): K76.0 - Fatty (change of) liver, not elsewhere classified Category: Medical Plan: 11/14/20 MRI confirmed fatty liver with negative hepatitis and autoimmune workup, no EtOH use, and metabolic risk factors (T2DM, HLD, obesity). No evidence of advanced fibrosis or cirrhosis. Management is lifestyle-based as per current guidelines. Additional Tests: Periodic US (preferred over MRI for surveillance); serial LFTs to monitor for progression Medications: None indicated for NAFLD at this time Lifestyle Modifications: Continue high protein, low carb diet; ongoing wt loss; maintain glycemic and lipid control Follow-Up: Monitor LFTs and metabolic parameters q6-12mo; repeat imaging as indicated Plan Follow-up after colonoscopy or sooner as needed Time: I spent a total of 45 minutes on the date of encounter which includes: Preparing to see the patient (reviewed previous documentation, test results and medical history) Performing a medically appropriate exam and/or evaluation Ordering medications, tests, and procedures Documenting clinical information in the health record Orders: Referrals 2 Cardiology Referral R53.83 - Other fatigue, Z01.810 - Encounter for preprocedural cardiovascular examination Medications: New bisacodyl Take four tablets once for 1 day per colonoscopy instructions 5 mg PO ONCE 4 tabs 0RF 1 day peg 3350-electrolytes [id number] -5.86 gram until fecal effluent is clear 240 mL PO Q10M 4,000 mL 0RF simethicone (Gas Relief (simethicone)) per colonoscopy prep instructions 125 mg PO ONCE 4 caps 0RF abdominal distention Coding Level of Care Code Established Pt Est Pt Level 5 (23057) Patient Type Established Diagnoses Screening for colon cancer Z12.11 NAFLD (nonalcoholic fatty liver disease) K76.0
[2024-11-07 10:03] VITALS: BP 144/60; PULSE 86; O2SAT 98; BMI 38.5
== END 2024-11-07 11:10 | disposition home or self-care (01) ==
LOC: HO.HGI 10:01
PROVIDERS: PCP Nurse Practitioner Family; Visit Provider Nurse Practitioner Family
DX: Z01.818 Encounter for other preprocedural examination (principal); Z12.11 Encounter for screening for malignant neoplasm of colon; Z86.0101 Personal history of adenomatous and serrated colon polyps; K76.0 Fatty (change of) liver, not elsewhere classified
CPT/HCPCS: 99215

== ENCOUNTER → 2024-11-07 10:00 | Outpatient (BNVA) | payer MEDICARE, BC, SELFPAY | PROVIDERS: PCP Nurse Practitioner Family; Visit Provider Nurse Practitioner Family | DX: Z12.11 Encounter for screening for malignant neoplasm of colon (principal); K76.0 Fatty (change of) liver, not elsewhere classified | CPT/HCPCS: 99212 ==

== ENCOUNTER 2025-03-01 11:06 | Outpatient (REF) | payer MEDICARE, BC, SELFPAY ==
[2025-03-01 13:12] LABS: MANUAL DIFF FLAG NO
[2025-03-01 13:23] LABS: Hematocrit 46.6 % (37.0-47.0); Hemoglobin 15.2 g/dl (12.0-16.0); Imm Gran Abs Auto 0.03 X10*3/uL (0.00-0.03); Imm Gran Pct Auto 0.5 % (0.0-0.4); Lymphocytes Absolute Auto 1.2 X10*3/uL (1.2-4.9); Mean Corpuscular HGB Conc 32.6 g/dl (31.0-35.0); Mean Corpuscular Hemoglobin 30.9 pg (27.0-33.0); Mean Corpuscular Volume 94.7 fL (80.0-98.0); NRBC Abs Auto 0.000 X10*3/uL (0.0-0.012); NRBC Pct Auto 0.0 /100WBC (0.0-0.2); Platelet Count 202 X10*3/uL (160-400); Red Blood Count 4.92 X10*6/uL (4.20-5.50); White Blood Count 5.7 X10*3/uL (4.8-10.8)
[2025-03-01 13:50] LABS: Alanine Aminotransferase 29 U/L (0-31); Albumin Level 4.1 g/dL (3.5-5.0); Alkaline Phosphatase 81 U/L (39-117); Anion Gap 13 (12-20); Aspartate Amino Transferase 36 U/L (5-31); Blood Urea Nitrogen 17 mg/dL (9-16); Calcium 9.4 mg/dL (8.4-10.2); Carbon Dioxide 26 mmol/L (22-29); Chloride 106 mmol/L (96-108); Cholesterol 153 mg/dL (<200); Estimated Glomerular Filt Rate > 60; HDL Cholesterol 49 mg/dL (>40); Potassium 4.3 mmol/L (3.3-5.1); Sodium 141 mmol/L (135-145); Total Protein 7.0 g/dL (6.5-8.0); Triglycerides 161 mg/dL (<150)
[2025-03-01 16:13] LABS: Appearance Urine Clear; Glucose Urine UA Negative (Negative); PH 5.5 (5.0-9.0); Specific Gravity - Urine 1.015 (1.005-1.025)
[2025-03-01 16:35] LABS: Microalbum/Creatinine Ratio Ur 9.3 ug/mg cr (<30)
== END 2025-03-01 11:07 | disposition home or self-care (01) ==
LOC: HO.HMGCLDS 11:06
PROVIDERS: PCP Nurse Practitioner Family; Visit Provider Nurse Practitioner Family
DX: E11.9 Type 2 diabetes mellitus without complications (principal)
CPT/HCPCS: 36415; 80053; 80061; 81003; 82043; 82570; 83036; 84443; 85025

== ENCOUNTER 2025-03-07 12:42 | Outpatient (AMB) | payer MEDICARE, BC, SELFPAY ==
[2025-03-07 12:45] VITALS: BP 144/74; PULSE 94; O2SAT 96; BMI 38.9
--- NOTE | 2025-03-07 12:45 | A.OFFPC_ITS ---
Vital Signs 03/07/25 12:45 Height 5 ft 1 in Weight 206 lb BMI 38.9 BP 144/74 H Blood Pressure Location Rt brachial Position Sitting Pulse 94 Pulse Source Pulse Oximeter Pulse Oximetry (%) 96 Intake Visit Reasons: 6 months f/up Allergies amoxicillin (AMOXICILLIN) Allergy (Intermediate, Verified 03/07/25 12:46) RASH Penicillins (PENICILLINS) Allergy (Intermediate, Verified 03/07/25 12:46) RASH cephaloglycin (CEPHALOGLYCIN) Allergy (Mild, Verified 03/07/25 12:46) RASH ciprofloxacin (From CIPRO) Allergy (Mild, Verified 03/07/25 12:46) RASH penicillin V Allergy (Unknown, Verified 03/07/25 12:46) Unknown Amoxicillin Allergy (Unknown, Uncoded 09/06/24 11:36) Rash Cephadyn Allergy (Unknown, Uncoded 09/06/24 11:36) rash Cipro Allergy (Unknown, Uncoded 09/06/24 11:36) Rash penicillin Allergy (Unknown, Uncoded 09/06/24 11:36) Rash Medication List - Last Reconciled 03/07/25 by CAROLEE Hussein- acetaminophen (Tylenol) 650 mg (2 x 325 mg) PO Q4H PRN atorvastatin 40 mg PO DAILY blood sugar diagnostic ([employer]Touch Ultra Test strips) As directed 3x/day cholecalciferol (vitamin D3) 50 mcg PO DAILY 90 days levothyroxine 100 mcg PO DAILY meclizine 12.5 mg PO TID PRN 10 days olmesartan 5 mg PO DAILY 90 days pen needle, diabetic As directed pioglitazone 30 mg PO DAILY semaglutide (Ozempic) 2 mg (0.75 mL) subcut QWEEK Tobacco use date assessed: 09/06/24 Fall risk assessment: No Falls in past year Last assessed Fall Risk: 03/07/25 Dental Screening Dental Screen Date: 09/06/24 HPI 6 months f/up HPI Details Chief Complaint The patient presents for a follow-up on diabetes. History of Present Illness The patient is a 75 year old individual presenting for a follow-up visit for diabetes. The patient has a history of obesity and hypertension, reporting that blood pressure readings taken at home are much lower than in-office measurements. The patient reports that the last echocardiogram was performed in 2015. The patient is reportedly feeling quite well overall. The patient is due for a repeat eye exam and has a mammogram scheduled. For colon cancer screening, the patient is now more interested in the Cologuard test than a colonoscopy, currently. Social History Health Maintenance The patient has a mammogram scheduled. For colon cancer screening, the patient expressed a preference for Cologuard over a colonoscopy, and a Cologuard test will be ordered. Review of Systems - General: Reports feeling quite well. Physical Exam General: Cooperative, healthy appearing, comfortable, no acute distress and well developed, obese Orientation: Patient oriented x3 Limitations: No limitations Head: Normal to inspection Ears: Hearing grossly normal bilaterally Nose: Normal external nose present Face and sinus: Normal facial exam Eyes: Appearance normal, both eyes and all related structures Neck: Normal visual inspection and Yes full ROM Respiratory: Normal respiratory effort and able to speak in complete sentences. Clear to auscultation bilaterally Cardiovascular: Very faint systolic murmur. Regular rate and rhythm. Normal S1 and S2 GI: Normal to inspection. Soft to palpation and nontender Skin: No rashes or lesions noted Neuro: Patient oriented x3 Extremities: Positive sensation, use of monofilament to bilateral feet. Feet were intact bilaterally Results - Recent labs showed: - HbA1c: 5.8%. - Cholesterol: LDL of 72. - Liver Function: AST was slightly [place] at 36. - Renal Function: Kidney function is per fect. Plan 1. Diabetes Mellitus The patient's diabetes is well-controlled, with a recent A1c of 5.8%. Neuropathy screening with monofilament was normal. The patient is due for a repeat eye exam and will schedule this with the eye doctor. 2. Systolic Heart Murmur A very faint systolic murmur was incidentally found on exam. The last echocardiogram was in 2016. An echocardiogram will be ordered to further evaluate. 3. Hyperlipidemia The patient's cholesterol is well-managed with an LDL of 72. Continue current management and monitoring. 4. Hypertension The patient's blood pressure was slightly elevated in the office but is reported to be much lower at home. Will continue to monitor home blood pressure readings. 5. Elevated Ast Recent labs showed a slightly elevated AST of 36. This will continue to be monitored. Discussion Notes I discussed the recent lab results with the patient, noting the impressive A1c of 5.8% and LDL of 72. We reviewed the physical exam findings, including a new, very faint systolic murmur. I explained the need for an echocardiogram to evaluate this, given the last one was in 2016, and I will place an order for one. We also discussed health maintenance. The patient is due for an eye exam and will call the eye doctor. A mammogram is already scheduled. Regarding colon cancer screening, the patient expressed a preference for Cologuard over a colonoscopy, and I will order the Cologuard test. We will continue to monitor the slightly elevated AST and home blood pressure readings. Overall, the patient is doing quite well. Patient Instructions - Your diabetes and cholesterol are very well controlled, which is excellent news. - Continue to check your blood pressure at home. - I heard a faint sound in your heart ca lled a murmur today. To get a better look, I am ordering an ultrasound of your heart called an echocardiogram. - Please call your eye doctor to schedul e your yearly eye exam. - You have a mammogram already scheduled ; please attend that appointment. - I will order the Cologuard test for yo ur colon cancer screening as we discussed. [facility] Medical History Fatigue Pre-operative cardiovascular examination Positive HOLLY (antinuclear antibody) Hypothyroidism Hyperlipidemia LDL goal <100 Elevated LFTs Obesity due to excess calories Hypertension Controlled type 2 diabetes mellitus without complication Surgical History H/O colonoscopy Hx of dilation and curettage History of right oophorectomy Family History Sister Diabetes type 2, controlled Brother Diabetes, type I Social History Household Members: None Housing: House Alcohol intake: current Alcohol intake frequency: holidays/special occasions only Patient Tobacco Use Status: Former Tobacco user Years Smoked: 20 years e-Cigarette/Vaping Use: Never Used Second Hand Smoke Exposure: No service: No Current occupational status: retired Cognitive needs: No Hearing needs: No Vision needs: Yes Questionnaire Thrive Questionnaire Date Thrive assessed: 08/30/24 I am a: Patient What is your living situation today?: I have a steady place to live Within the past 12 months, did the food you bought not last and you didn't have the money to get more?: Never true Within the past 12 months, did you worry whether your food would run out before you got money to buy more?: Never true Do you have trouble paying for medicines?: No Do you have trouble getting transportation to medical appointments?: No Do you have trouble paying your heating and electricity bill?: No Do you have trouble taking care of your child, family member or friend?: No Do you have trouble with day-to-day activities such as bathing, preparing meals, shopping, managing finances, etc.?: No Are you currently unemployed and looking for a job?: No Are you interested in more education?: No Please select the resources that you would like help with: None Currently or been in a relationship where the following occur: No concerns reported THRIVE Score: 0 GERRI-7 AMB Questionnaire GERRI-7 Date GERRI - 7 assessed: 09/06/24 Source: Developed by Drs. Roberto Carlos Hinkle, Sydney Cabezas, Elijah Nielsen and colleagues, with an educational sylvia from [employer]. Physical exam (Primary Care) Vital Signs: Last Vital Signs Pulse 94 03/07/25 12:45 BP 144/74 H 03/07/25 12:45 Pulse Ox 96 03/07/25 12:45 BMI result Body Mass Index 38.9 Tobacco/Smoking Status: Tobacco use Status Tobacco use date assessed 09/06/24 03/07/25 12:47 Patient Tobacco Use Status Former Tobacco user 03/07/25 12:47 e-Cigarette/Vaping Use Never Used 03/07/25 12:47 Thrive Assessment: Date of Thrive Assessment Date Thrive assessed 08/30/24 03/07/25 12:47 Currently or been in a relationship where the following occur: No concerns reported Coding Level of Care Code Est Pt Level 3 (54178) Diagnoses Systolic murmur R01.1 Controlled type 2 diabetes mellitus without complication E11.9 Assessment & Plan Assessment & Plan (1) Systolic murmur: Code(s): R01.1 - Cardiac murmur, unspecified Category: Medical (2) Controlled type 2 diabetes mellitus without complication: Code(s): E11.9 - Type 2 diabetes mellitus without complications Category: Medical Plan . Orders: Orders CA echo transthoracic complete Today R01.1 - Cardiac murmur, unspecified Referrals Cologuard Test Z12.11 - Encounter for screening for malignant neoplasm of colon, Z12.12 - Encounter for screening for malignant neoplasm of rectum
== END 2025-03-07 13:55 | disposition home or self-care (01) ==
LOC: HO.HMCC 12:43
PROVIDERS: PCP Nurse Practitioner Family; Visit Provider Nurse Practitioner Family
DX: R01.1 Cardiac murmur, unspecified (principal); E11.9 Type 2 diabetes mellitus without complications

== ENCOUNTER → 2025-03-07 12:42 | Outpatient (BNVA) | payer MEDICARE, BC, SELFPAY | PROVIDERS: PCP Nurse Practitioner Family; Visit Provider Nurse Practitioner Family | DX: R01.1 Cardiac murmur, unspecified (principal); E11.9 Type 2 diabetes mellitus without complications | CPT/HCPCS: 99212 ==

== ENCOUNTER 2025-03-13 14:42 | Outpatient (REF) | payer MEDICARE, BC, SELFPAY ==
--- NOTE | ~2025-03-13 | MM_ITS ---
EXAMINATION: MM SCREENING DIGITAL BREAST TOMOSYNTHESIS, BILATERAL CLINICAL INFORMATION: Screening. Asymptomatic. COMPARISON: Comparison made to multiple prior, most recent January 03, 2024, and most remote October 05, 2012. TECHNIQUE: Digital breast tomosynthesis is performed in mediolateral oblique and craniocaudal views along with computer-aided detection (CAD). Synthesized 2D images are generated from the tomosynthesis. FINDINGS: BREAST COMPOSITION: The breasts are heterogeneously dense, which may obscure small masses. BILATERAL BREASTS: No significant masses, suspicious calcifications or other abnormalities are seen in either breast. MM/MM tomosynthesis screening BI IMPRESSION: BILATERAL BREASTS: Negative, no mammographic evidence of malignancy. Normal interval follow-up is recommended in 12 months. ASSESSMENT: BI-RADS: Category 1: Negative RECOMMENDATION: Routine annual mammography screening. FOLLOW-UP: 1 year F/U This examination should not preclude the clinical evaluation of a suspicious palpable abnormality. This patient's information was entered into a reminder system with a target due date for their next mammogram. Electronically signed by: Elena Martin MD 03/15/2025 05:33 PM EST
== END 2025-03-13 14:43 | disposition home or self-care (01) ==
LOC: HO.MAMMO 14:42
PROVIDERS: PCP Nurse Practitioner Family; Visit Provider Nurse Practitioner Family
DX: Z12.31 Encounter for screening mammogram for malignant neoplasm of breast (principal)
CPT/HCPCS: 77063; 77067

== ENCOUNTER → 2025-03-13 15:00 | Outpatient (BNV) | payer MEDICARE, BC, SELFPAY | PROVIDERS: PCP Nurse Practitioner Family; Visit Provider Radiology Body Imaging | DX: Z12.31 Encounter for screening mammogram for malignant neoplasm of breast (principal) | CPT/HCPCS: 77063; 77067 ==

== ENCOUNTER 2025-04-03 12:07 | Outpatient (AMB) | payer MEDICARE, BC, SELFPAY ==
[2025-04-03 12:17] VITALS: BP 148/80; PULSE 81; TEMP 36.7; O2SAT 97; BMI 38.7
--- NOTE | 2025-04-03 12:17 | AM.OFFWIN_ITS ---
Intake Vital Signs 04/03/25 12:17 Height 5 ft 1 in Weight 205 lb BMI 38.7 BP 148/80 H Blood Pressure Location Lt brachial Position Sitting Pulse 81 Pulse Source Pulse Oximeter Temp 98.0 F Temp Source Oral Pulse Oximetry (%) 97 Oxygen Delivery Method Room Air Intake Visit Reasons: EP-ears infection Intake Note: pt presents with bilateral ear popping and swollen glands since around 2-3 weeks Patient Tobacco Use Status: Former Tobacco user Allergies Penicillins (PENICILLINS) Allergy (Intermediate, Verified 03/07/25 12:46) RASH cephaloglycin (CEPHALOGLYCIN) Allergy (Mild, Verified 03/07/25 12:46) RASH ciprofloxacin (From CIPRO) Allergy (Mild, Verified 03/07/25 12:46) RASH Do you need a note to return to daycare/school/sports/work: No HPI HPI Comments History of Present Illness Details History - The patient is a 75-year-old female pr esenting with ear complaints following a recent cold. - She reports ear congestion and pain, w hich are more pronounced in one ear. - She noted swelling in the ear a few da ys ago. - She denies any hearing loss or dischar ge. - The patient reports a history of an al lergic reaction to Cipro. - She denies any known allergy to penici llin or amoxicillin. - She denies ENGLISH, dizziness, discharge, C P, SOB, or nausea. Physical Exam General: Cooperative, healthy appearing, comfortable and no acute distress Orientation/consciousness: Patient oriented x3 Limitations: No limitations Head: Normal to inspection Ears: Hearing grossly normal bilaterally, external ears normal. Right ear with erythema and inflammation to the right TM and in the canal. Nose: Normal external nose present, normal nares present, and no nasal discharge present. Face and sinus: Sinuses nontender to palpation. Mouth: Normal oral and palatal mucosa present and moist mucous membranes noted. Throat: Tonsils normal. Uvula is midline. Posterior oropharynx with erythema and no exudates. Eyes: Appearance normal, both eyes and all related structures Neck: Normal visual inspection, full ROM. No lymphadenopathy noted. Respiratory: Clear to auscultation bilaterally. Normal respiratory effort, able to speak in complete sentences. No respiratory distress, not tachypneic, no tripod positioning and no use of accessory muscles. Cardiovascular: Regular rate and rhythm. Normal S1 and S2 Skin: No rashes or lesions noted Patient was informed and verbally consented to the use of an ambient scribe for clinic note documentation during this visit [facility] Medical History Fatigue Pre-operative cardiovascular examination Positive HOLLY (antinuclear antibody) Hypothyroidism Hyperlipidemia LDL goal <100 Elevated LFTs Obesity due to excess calories Hypertension Controlled type 2 diabetes mellitus without complication Surgical History H/O colonoscopy Hx of dilation and curettage History of right oophorectomy Family History Sister Diabetes type 2, controlled Brother Diabetes, type I Social History Household Members: None Housing: House Alcohol intake: current Alcohol intake frequency: holidays/special occasions only Patient Tobacco Use Status: Former Tobacco user Years Smoked: 20 years e-Cigarette/Vaping Use: Never Used Second Hand Smoke Exposure: No service: No Current occupational status: retired Cognitive needs: No Hearing needs: No Vision needs: Yes Review of Systems Const All systems reviewed & are unremarkable except as noted in HPI and below Physical Exam Vital Signs: Last Vital Signs Temp 98.0 F 04/03/25 12:17 Pulse 81 04/03/25 12:17 BP 148/80 H 04/03/25 12:17 Pulse Ox 97 04/03/25 12:17 Oxygen Delivery Method Room Air 04/03/25 12:17 BMI result Body Mass Index 38.7 Assessment & Plan Assessment & Plan (1) Ear pain, right: Code(s): H92.01 - Otalgia, right ear Plan Most likely Acute Otitis Media plan - The patient's presentation with ear pain, congestion, and otoscopic findings of a red and inflamed tympanic membrane following an upper respiratory infection is consistent with acute otitis media. - The plan is to treat with Augmentin - The prescription is for a seven-day course, taken twice daily. - The prescription was sent to the pharmacy. - The patient's reported allergy to Cipro was noted. - Given she has no known allergies to penicillin or amoxicillin, Augmentin was selected as an appropriate antibiotic treatment. - f/u with PCP Medications: New amoxicillin-pot clavulanate 875-125 mg 1 tab PO Q12H 14 tabs 0RF Coding Level of Care Code Est Pt Level 3 (46558) Diagnoses Ear pain, right H92.01
== END 2025-04-03 13:35 | disposition home or self-care (01) ==
PROVIDERS: PCP Nurse Practitioner Family; Visit Provider Physician Assistant Medical
DX: H92.01 Otalgia, right ear (principal)

== ENCOUNTER → 2025-04-03 12:07 | Outpatient (BNVA) | payer MEDICARE, BC, SELFPAY | PROVIDERS: PCP Nurse Practitioner Family; Visit Provider Physician Assistant Medical | DX: H92.01 Otalgia, right ear (principal) | CPT/HCPCS: 99212 ==